=== PATIENT | male | born 1945 | race Caucasian/White ===

== ENCOUNTER 2018-03-24 08:30 | Outpatient (RCR) | payer MEDICARE, OTHER, SELFPAY | END 2018-03-28 11:36 | LOC: CAR 08:30 | PROVIDERS: PCP Physician Assistant; Visit Provider Internal Medicine Cardiovascular Disease | DX: Z95.2 Presence of prosthetic heart valve (principal) | CPT/HCPCS: 93798 ==

== ENCOUNTER → 2019-03-22 10:12 | Outpatient (CLI) | payer MEDICARE, OTHER, SELFPAY ==
[2019-03-22 11:27] LABS: Prostate Specific Antigen 1.86 ng/mL (0.10-4.00)
== END ==
PROVIDERS: Family Provider Physician Assistant; PCP Physician Assistant; Visit Provider Urology
DX: N40.1 Benign prostatic hyperplasia with lower urinary tract symptoms (principal)
CPT/HCPCS: 36415; 84153

== ENCOUNTER → 2020-01-23 15:47 | Outpatient (CLI) | payer OTHER, SELFPAY ==
--- NOTE | 2020-01-23 | DI.ECHO.S_ITS ---
[facility] +---------+ : : [address] : : : : [id number] : : : : Phone: [phone] Echocardiogram Report + + :Name: ESTHELA JACKSON Study Date: 01/23/2020 Height: 73 in : :[facility] Weight: 182 lb : : Gender: Male BSA: 2.1 m2 : :: 1945 Age: 74 yrs BP: 120/74 mmHg: :Reason For Study: Ventricular premature depolarization : :Ordering Physician: Noelle : :Jose Luis Mcintyre Performed By: Jeanne Zamudio : :Referring: NOELLE MCINTYRE : + + Interpretation Summary The left ventricle is normal in size. This is Decreased compared to the previous study. The ejection fraction is estimated to be 60-65%. There has been no significant change in LVEF since the previous exam. The right ventricle is mildly dilated. The right ventricular systolic function is normal. The mitral valve has been surgically repaired and an annuloplasty ring sewn in place. No significant mitral valve stenosis. There is no mitral regurgitation noted. Procedure: A two-dimensional transthoracic echocardiogram with color flow and Doppler was performed. The study quality was technically adequate. Comparison is made with the echocardiogram of 01/11/2017. The patient was in normal sinus rhythm during the exam. The heart rate ranged between 65-72 bpm during the study. Left Ventricle: The left ventricle is normal in size. Left ventricular wall thickness is borderline increased. This is Decreased compared to the previous study. There is no thrombus. The ejection fraction is estimated to be 60-65%. There has been no significant change since the previous exam. There are no focal wall motion abnormalities. MV E/A: 0.77 Med Peak E' Khoi: 6.2 cm/sec E/E' med: 16.2. Right Ventricle: The right ventricle is mildly dilated. The right ventricular systolic function is normal. Atria: The left atrium is severely dilated. The left atrium has remained unchanged in size since the prior echo exam. The right atrium is mildly dilated. There is no Doppler evidence for an interatrial shunt. Mitral Valve: The mitral valve chordae are thickened and/or calcified. The mitral valve has been surgically repaired and an annuloplasty ring sewn in place. Redundant elongated chordae are noted. No significant mitral valve stenosis. There is no mitral regurgitation noted. Aortic Valve: The aortic valve is trileaflet. The aortic valve opens well. There is no aortic valve stenosis. No aortic regurgitation is present. Tricuspid Valve: The tricuspid valve is normal in structure and function. There is mild tricuspid regurgitation. The right ventricular systolic pressure is estimated to be at least 29 mmHg based on an estimated right atrial pressure of 3 mm Hg. Compared to the prior echo exam, there has been no change in TR severity. Pulmonic Valve: The pulmonic valve is not well visualized. There is trace pulmonic regurgitation. Great Vessels: The aortic root is normal size. The ascending aorta is at the upper limits of normal in size. The IVC is of normal diameter and collapses greater than 50% with a sniff. This suggests a low right atrial pressure of 3 mm Hg. Pericardium/ Pleura There is no pericardial effusion. There is no pleural effusion. MMode/2D Measurements & Calculations LVIDd: 5.6 cm LVOT diam: 2.4 cm LVIDs: 3.9 cm Ao root diam: 3.3 cm FS: 29.7 % asc Aorta Diam: 3.4 cm EPSS: 1.2 cm IVSd: 1.0 cm LVPWd: 1.1 cm LV lowry. diameter/BSA (cm/m^2): 2.7 LV sys. diameter/BSA (cm/m^2): 1.9 LA A2 area: 30.3 cm2 RA long axis: 6.4 cm LA A4 area: 28.8 cm2 RA area: 24.7 cm2 LA length (vol): 6.5 cm RA vol: 81.3 ml LA vol: 113.4 ml RA : 39.3 ml/m2 LA vol index: 54.9 ml/m2 IVC diam: 1.5 cm RVD1 (basal): 4.4 cm TAPSE: 1.7 cm Doppler Measurements & Calculations Ao V2 max: 134.4 cm/sec LVOT Max Khoi: 102.5 cm/sec Ao V2 mean: 89.1 cm/sec LV V1 max P.2 mmHg Ao max P.2 mmHg LV V1 VTI: 21.3 cm Ao mean P.7 mmHg CHRIS(I,D): 3.8 cm2 Ao V2 VTI: 25.6 cm CHRIS(V,D): 3.5 cm2 sev ratio: 0.83 CHRIS indexed to BSA (cm^2/m^2): 1.8 MV E max khoi: 100.6 cm/sec TR max khoi: 237.6 cm/sec MV A max khoi: 130.8 cm/sec TR max P.6 mmHg MV E/A: 0.77 PA V2 max: 80.7 cm/sec Med Peak E' Khoi: 6.2 cm/sec PA V2 mean: 53.6 cm/sec E/E' med: 16.2 PA mean P.3 mmHg Lat Peak E' Khoi: 8.3 cm/sec E/E' lat: 12.1 E/e' average: 14.2 MV dec time: 0.40 sec MVA(VTI): 2.0 cm2 MV V2 mean: 89.3 cm/sec SV(LVOT): 97.6 ml MV mean P.7 mmHg MV V2 VTI: 49.1 cm Reading Physician:06:39 PM
== END ==
PROVIDERS: Family Provider Physician Assistant; PCP Nurse Practitioner; Referring Provider Internal Medicine Cardiovascular Disease; Visit Provider Internal Medicine Cardiovascular Disease
DX: I07.1 Rheumatic tricuspid insufficiency (principal); I49.3 Ventricular premature depolarization; Z98.890 Other specified postprocedural states
CPT/HCPCS: 93306

== ENCOUNTER → 2020-02-06 11:34 | Outpatient (CLI) | payer OTHER, SELFPAY ==
[2020-02-06 12:49] LABS: Alanine Aminotransferase 25 IU/L (<50); Albumin Globulin Ratio 1.4 (1.0-2.8); Alkaline Phosphatase 54 U/L (38-126); Aspartate Aminotransferase 30 IU/L (17-59); BUN Creatinine Ratio 23.5 (6-22); Blood Urea Nitrogen 16 mg/dL (9-20); Calcium 9.3 mg/dL (8.4-10.2); Carbon Dioxide 27 mmol/L (22-32); Chloride 106 mmol/L (98-107); Estimated Glomerular Filt Rate > 60.0 mL/min (>60); Globulin 2.8 g/dL (1.7-4.1); Glucose 68 mg/dL (80-110); HEMOLYSIS < 15 (0-50); Magnesium 2.2 mg/dL (1.6-2.3); Sodium 139 mmol/L (137-145); Total Protein 6.8 g/dL (6.3-8.2)
[2020-02-06 13:11] LABS: Thyroid Stimulating Hormone 1.57 uIU/mL (0.47-4.68)
== END ==
PROVIDERS: Family Provider Physician Assistant; PCP Nurse Practitioner; Referring Provider Internal Medicine Cardiovascular Disease; Visit Provider Internal Medicine Cardiovascular Disease
DX: I49.3 Ventricular premature depolarization (principal); I34.0 Nonrheumatic mitral (valve) insufficiency
CPT/HCPCS: 36415; 80053; 83735; 84443

== ENCOUNTER → 2021-03-31 09:50 | Outpatient (CLI) | payer OTHER, SELFPAY ==
--- NOTE | 2021-03-31 10:29 | DI.RAD.S_ITS ---
PROCEDURE: XR CHEST 2V INDICATIONS: cough TECHNIQUE: 2 views of the chest were acquired. COMPARISON: None. FINDINGS: Surgical changes and devices: Median sternotomy wires and prior valvular replacement. Lungs and pleura: Lungs are clear, aside from mild left basilar scarring versus subsegmental atelectasis. No pleural effusions or pneumothorax. Mediastinum: Mediastinal contours are normal. Heart size is normal. Bones and chest wall: No suspicious bony abnormalities. Soft tissues appear unremarkable. IMPRESSION: Left basilar scarring versus subsegmental atelectasis. Dictated by: Travis Manzanares [facility] Interpreted: Ernst Ferrera MD on 03/31/2021 at 10:39 Transcribed by: VIVIAN on 03/31/2021 at 10:40 Approved by: Ernst Ferrera M.D. on 03/31/2021 at 15:42
[2021-03-31 11:22] LABS: Add Manual Diff / Slide Review NO; Basophils Absolute Auto 100 /uL (0-100); Basophils Percent Auto 0.8 % (0-2); Eosinophils Absolute Auto 200 /uL (0-450); Eosinophils Percent Auto 3.1 % (2-4); Hematocrit 45.1 % (41-53); Hemoglobin 15.4 g/dL (13.5-17.5); Lymphocytes Absolute Auto 2100 /uL (1100-4500); Lymphocytes Percent Auto 34.4 % (25-40); Mean Corpuscular HGB Conc 34.3 % (30-36); Mean Corpuscular Hemoglobin 31.2 PG (26-34); Mean Corpuscular Volume 91.1 fL (80-100); Monocytes Absolute Auto 300 /uL (0-900); Neutrophils Absolute Auto 3500 /uL (1500-7000); Neutrophils Percent Auto 56.7 % (50-75); Platelet Count 172 X10^3/uL (150-400); Red Blood Cell Count 4.95 X10^6/uL (4.5-5.9); Red Cell Distribution Width 13.2 % (11.6-14.8); White Blood Cell Count 6.1 X10^3/uL (4.5-11.0)
[2021-03-31 11:40] LABS: Alanine Aminotransferase 30 IU/L (<50); Albumin 4.1 g/dL (3.5-5.0); Albumin Globulin Ratio 1.6 (1.0-2.8); Alkaline Phosphatase 54 U/L (38-126); Aspartate Aminotransferase 34 IU/L (17-59); BUN Creatinine Ratio 19.2 (6-22); Bilirubin Total 0.8 mg/dL (0.2-1.3); Blood Urea Nitrogen 15 mg/dL (9-20); C-Reactive Protein Quant < 0.5 mg/dL (<1.0); Calcium 9.2 mg/dL (8.4-10.2); Carbon Dioxide 29 mmol/L (22-32); Chloride 106 mmol/L (98-107); Estimated Glomerular Filt Rate > 60.0 mL/min (>60); Globulin 2.6 g/dL (1.7-4.1); Glucose 93 mg/dL (80-110); HEMOLYSIS < 15 (0-50); Potassium 4.4 mmol/L (3.4-5.1); Sodium 138 mmol/L (137-145); Total Protein 6.7 g/dL (6.3-8.2)
[2021-03-31 11:51] LABS: Free T3, Triiodothyronine Free 3.46 pg/mL (2.77-5.27); Free T4, Direct Thyroxine 0.97 ng/dL (0.78-2.19)
[2021-03-31 12:05] LABS: Erythrocyte Sedimentation Rate 4 MM/HR (0-15)
[2021-04-01 20:58] LABS: ANA Screen, IFA Negative (.)
== END ==
PROVIDERS: Family Provider Physician Assistant; PCP Nurse Practitioner; Referring Provider Nurse Practitioner; Visit Provider Nurse Practitioner
DX: E78.2 Mixed hyperlipidemia (principal); R05 Cough; R50.9 Fever, unspecified; R53.83 Other fatigue
CPT/HCPCS: 36415; 71046; 80053; 84439; 84443; 84481; 85025; 85651; 86038; 86140

== ENCOUNTER 2022-07-22 18:47 | Emergency (ER) | payer OTHER, SELFPAY ==
--- NOTE | 2022-07-22 18:36 | DI.CT.S_ITS ---
PROCEDURE: CT HEAD/BRAIN WO CON INDICATIONS: Trauma TECHNIQUE: Noncontrast 4.5 mm thick angled axial sections acquired from the foramen magnum to the vertex, with coronal and sagittal reformats. For radiation dose reduction, the following was used: automated exposure control, adjustment of mA and/or kV according to patient size. COMPARISON: None. FINDINGS: Image quality: Excellent. CSF spaces: Basal cisterns are patent. No extra-axial fluid collections. Ventricles are normal in size and shape. Brain: No midline shift. No intracranial masses or hemorrhage. Pna-white matter interface is normal. Skull and face: Calvarium and visualized facial bones are intact, without suspicious lesions. Bilateral intraocular lens replacements noted. Comminuted nasal bone fracture Sinuses: Visualized sinuses and mastoids are clear. IMPRESSION: Unremarkable CT brain without intracranial hemorrhage or mass effect paragraphs comminuted nasal bone fracture Continued Report - Page 2 of 2 PATIENT NAME: ESTHELA JACKSON : 1945 EXAM DATE: 07/22/2022 18:[address] HARSHIL LEMUS D.O. CC: MODALITY: CT PATIENT TYPE: Pre CONTRAST MEDIA: STATION ID: [id number] FLUORO TIME: Approved by: Morris Cervantes M.D. on 07/22/2022 at 18:12
--- NOTE | 2022-07-22 18:36 | DI.CT.S_ITS ---
PROCEDURE: CT FACIAL BONES WO CON INDICATIONS: trauma, facial injury, altered TECHNIQUE: Noncontrast 2.5 mm thick axial images acquired from the mandible through the frontal sinuses, with coronal and sagittal reformatting. For radiation dose reduction, the following was used: automated exposure control, adjustment of mA and/or kV according to patient size. COMPARISON: None. FINDINGS: Maxillofacial Bones: The zygomaticomaxillary complex is intact. The pterygoid plates and skull base are unremarkable. No evidence of fracture or lytic lesion. Comminuted nasal bone fracture noted Mandible: The mandible is intact without fracture. Unremarkable temporomandibular articulation. Dentition: Unremarkable mandibular and maxillary dentition. Soft tissues: No maxillofacial soft tissue swelling. No radiopaque foreign bodies. Orbits: The osseous orbits, globes and ocular muscles unremarkable. Bilateral intraocular lens replacements noted. Sinuses and Mastoid: The visualized portion of the paranasal sinuses and mastoids are normal. No air-fluid levels or wall fractures. The nasal vault is unremarkable. IMPRESSION: Comminuted nasal bone fracture Approved by: Morris Cervantes M.D. on 07/22/2022 at 18:13
--- NOTE | 2022-07-22 18:36 | DI.CT.S_ITS ---
PROCEDURE: CT CERVICAL SPINE WO CON INDICATIONS: Trauma TECHNIQUE: Noncontrast 3 mm thick sections acquired from the skull base to the T4 level. Sagittal and coronal reformats were then constructed. For radiation dose reduction, the following was used: automated exposure control, adjustment of mA and/or kV according to patient size. COMPARISON: None. FINDINGS: Image quality: Excellent. Bones: No fractures or dislocations. Visualized superior ribs are intact. Hypertrophic facet joints noted throughout the exam. Posterior disc osteophyte complex results in moderate to severe central stenosis at C5-6 Soft tissues: Prevertebral soft tissues are normal in thickness. No paravertebral hematomas. No apical pneumothoraces. IMPRESSION: No evidence of fracture or traumatic malalignment. Multilevel degenerative disc disease and arthropathy results in moderate to severe central stenosis at C5-6 Approved by: Morris Cervantes M.D. on 07/22/2022 at 18:17
[2022-07-22 18:41] VITALS: BP 128/70; PULSE 75; RESP 23; O2SAT 94
[2022-07-22 18:42] VITALS: BP 127/80; PULSE 70; RESP 18; TEMP 36.2; O2SAT 99
--- NOTE | 2022-07-22 18:47 | ED.TRAUMA ---
HPI - Trauma General Chief Complaint: Trauma Stated Complaint: Mod Trauma, fall on thinners Time Seen by Provider: 07/22/22 18:47 History of Present Illness HPI narrative: 76-year-old male former smoker with history AFib on Pradaxa, BPH presents by [employer] as a modified trauma due to a fall with head injury, loss of consciousness while on blood thinners. The patient had been in his normal state of health and stood up quickly from a table while playing games and had a syncopal episode which caused him to fall and strike his head. Onlookers report a loss of consciousness maybe for a few minutes and some confusion in the aftermath. There is no report of seizure. He does not have recall of the event but denies any neck or back pain. He has no chest pain or shortness of breath and denies any extremity injury. On arrival patient was found on the ground and EMS reports a brief blood pressure a 70 but upon repositioning he was in the 130s and remained there stable. Given fall with head injury on anticoagulation he was activated as a modified trauma quickly assessed and taken to CT for imaging Related Data Home Medications Medication Instructions Recorded Confirmed dabigatran etexilate 150 mg 150 mg PO BID 07/22/22 07/22/22 capsule (Pradaxa) Previous Rx's Medication Instructions Recorded metoprolol succinate 25 mg 12.5 mg PO QDAY #90 tabs 03/15/20 tablet,extended release 24 hr (Toprol XL) tamsulosin 0.4 mg capsule (Flomax) 0.8 mg PO QDAY #180 caps 09/08/21 cephalexin 500 mg capsule 500 mg PO Q6H 7 days #28 caps 07/22/22 hydrocodone 5 mg-acetaminophen 325 1 tab PO Q4-6H PRN pain #20 tabs 07/22/22 mg tablet ondansetron 4 mg disintegrating 4 mg PO TID-QID PRN nausea and 07/22/22 tablet vomiting #10 tabs Allergies Allergy/AdvReac Type Severity Reaction Status Date / Time No Known Drug Allergies Allergy Verified 07/22/22 19:03 Review of Systems Review of Systems Narrative: GENERAL: See HPI HEENT: See HPI RESPIRATORY: Denies dyspnea, cough, wheezing, hemoptysis, sputum. CARDIOVASCULAR: Denies chest pain, palpitations, orthopnea, edema, GASTROINTESTINAL: Denies nausea, vomiting, abdominal pain, diarrhea, constipation, melena. : Denies dysuria, frequency, incontinence, hematuria, urinary retention. MUSCULOSKELETAL: denies weakness, joint pain, or bony pain SKIN: See HPI NEUROLOGIC: Denies weakness, headache, numbness, change in speech, confusion, seizures, incoordination. PSYCHIATRIC: No concerning psychosocial issues. 12 point review of systems is negative except for those stated above Patient History Medical History Atrial flutter BPH (benign prostatic hyperplasia) Colon cancer screening FH: mitral valve repair Palpitations Paroxysmal atrial fibrillation Urinary frequency Surgical History Status post knee surgery Family History Mother Age: 93 Hypertension Social History Smoking Status: Former smoker Smoking Status: Former smoker Exam Narrative Exam Narrative: GENERAL: [76] year old patient appears stated age. Well-developed patient, in mild distress. GCS 15 HEAD: 4cm irregular deep laceration over left eye, no FB noted, minimal bleeding. No other laceration, abrasion evidence of depressed skull fracture EYES: Pupils equal round and reactive. Extraocular motions intact. No hyphema noted No scleral icterus. No injection or drainage. Patient has intact visual acuity, denies any blurring or double vision. Visualized under Wood's lamp, no foreign body or dye uptake with fluorescein ENT: Swollen deformed nose consistent with fracture. Dried blood in bilateral nares, he is able to breathe through both nostrils, no evidence of nasal septal hematoma. Throat without erythema, tonsillar hypertrophy or exudate. Airway patent. No hemotympanum NECK: Trachea midline. Non tender, no midline bony tenderness, crepitance or pain with axial loading CARDIOVASCULAR: Regular rate and rhythm without murmurs, gallops, or rubs. RESPIRATORY: Clear to auscultation. Breath sounds equal bilaterally. No wheezes, rales, or rhonchi. GASTROINTESTINAL: Abdomen soft, non-tender, nondistended. EXTREMITIES: No edema or joint tenderness. BACK: Nontender without deformity or crepitance. No flank tenderness. NEURO: AOx3. SKIN: No rash or erythema of visible areas Initial Vital Signs Initial Vital Signs: Vital Signs Pulse Rate 75 07/22/22 18:41 Respiratory Rate 23 07/22/22 18:41 Blood Pressure 128/70 07/22/22 18:41 Pulse Oximetry 94 07/22/22 18:41 Oxygen Delivery Method 07/22/22 18:41 Procedures Laceration Repair Laceration 1: Site: face Side (If applicable): left Size (cm): 4 Description: stellate Depth: involves muscle layer Local Anesthetic: bupivacaine 0.5% and with epi Amount of anesthesia used (mL): 4 Pre-repair: wound explored, irrigated extensively and cleansed with chlorhexadine Skin layer closed with: nylon Skin layer suture size: 4-0 and 6-0 Number of sutures: 11 Technique: simple, interrupted Subcutaneous layer closed with: vicryl Subcutaneous layer suture size: 4-0 Number of sutures: 4 Technique: simple, interrupted Course Orders Ordered: ED Orders 07/22/22 18:32 CT facial bones wo con Stat 07/22/22 18:33 CT cervical spine wo con Stat CT head/brain wo con Stat 07/22/22 18:35 Complete Blood Count AUTO DIFF Stat Comprehensive Metabolic Panel Stat Ethanol (ETOH) Stat Lactate (Lactic Acid) Stat Lipase Stat Partial Thromboplastin Time Stat Prothrombin Time INR Stat 07/22/22 19:00 EKG-12 Lead Stat 07/22/22 19:10 Type and Screen Stat 07/22/22 19:59 Chest [XR chest 1V] Stat XR pelvis 1-2V Stat Discontinued Medications Hydrocodone Bitart/Acetaminophen (Hydrocodone/Acet 5/325 Prepack) 1 bottle MISC SEEINSTR ONE Stop: 07/22/22 22:28 Last Admin: 07/22/22 22:31 Dose: 1 bottle Documented By: TK Cefazolin Sodium (Cephalexin 250 Mg Prepack) 1 bottle MISC SEEINSTR ONE Stop: 07/22/22 20:00 Last Admin: 07/22/22 20:53 Dose: 1 bottle Documented By: TK Diphtheria/Tetanus/Acell Pertussis (Tet,Diph,Pertuss(Acell),Vac/Pf 0.5 Ml Syringe) 0.5 ml IM .ONCE ONE Stop: 07/22/22 18:33 Last Admin: 07/22/22 19:01 Dose: 0.5 ml Documented By: ADK Fluorescein Sodium (Fluorescein 1 Mg Strip) 1 mg EYE-LEFT NOW ONE Stop: 07/22/22 18:44 Lidocaine/Epinephrine (Lidocaine 1% W/Epi) 1 ml SUBCUT NOW ONE Stop: 07/22/22 18:44 Ondansetron HCl (Ondansetron 4 Mg Odt Prepack) 1 bottle MISC SEEINSTR ONE Stop: 07/22/22 20:00 Last Admin: 07/22/22 20:54 Dose: 1 bottle Documented By: AP Ondansetron HCl (Ondansetron 4 Mg Odt Prepack) 1 bottle MISC SEEINSTR ONE Stop: 07/22/22 22:28 Proparacaine HCl (Proparacaine 0.5% Ophth Laura) 1 drops EYE-LEFT NOW ONE Stop: 07/22/22 18:44 Vital Signs Vital signs: Vital Signs - 8 hr 07/22/22 18:42 07/22/22 18:41 07/22/22 22:43 Temperature 97.1 F L Pulse Rate 70 75 82 Respiratory Rate 18 18 Blood Pressure 127/80 113/74 Blood Pressure [Right Arm] 128/70 Pulse Oximetry 99 94 100 Oxygen Delivery Method Room Air Room Air Room Air MDM - Trauma Lab Data Result diagrams: 07/22/22 18:35 07/22/22 18:35 Labs: Lab Results 07/22/22 07/22/22 07/22/22 Range/Units 18:35 18:35 18:35 WBC 11.3 H (4.5-11.0) X10^3/uL RBC 4.97 (4.5-5.9) X10^6/uL Hgb 15.3 (13.5-17.5) g/dL Hct 44.5 (41-53) % MCV 89.5 (80-100) fL MCH 30.8 (26-34) PG MCHC 34.4 (30-36) % RDW 13.3 (11.6-14.8) % Plt Count 223 (150-400) X10^3/uL Neut % (Auto) 56.8 (50-75) % Lymph % (Auto) 35.2 (25-40) % Spalding % (Auto) 5.4 (3-14) % Eos % (Auto) 2.0 (2-4) % Baso % (Auto) 0.6 (0-2) % Neut # (Auto) 6400 (0655-0976) /uL Lymph # (Auto) 4000 (4599-9508) /uL Spalding # (Auto) 600 (0-900) /uL Eos # (Auto) 200 (0-450) /uL Baso # (Auto) 100 (0-100) /uL PT 12.3 (10.1-12.7) SECONDS INR 1.1 (0.9-1.3) APTT 26 (26-36) SECONDS Sodium 139 (137-145) mmol/L Potassium 3.8 (3.4-5.1) mmol/L Chloride 102 (98-107) mmol/L Carbon Dioxide 27 (22-32) mmol/L BUN 16 (9-20) mg/dL Creatinine 0.83 (0.66-1.25) mg/dL Estimated GFR > 60 (>60) mL/min BUN/Creatinine Ratio 19.3 (6-22) Glucose 115 H (80-110) mg/dL Lactate (0.7-2.1) mmol/L Calcium 9.4 (8.4-10.2) mg/dL Total Bilirubin 1.2 (0.2-1.3) mg/dL AST 27 (17-59) IU/L ALT 27 (<50) IU/L Alkaline Phosphatase 53 (38-126) U/L Total Protein 7.1 (6.3-8.2) g/dL Albumin 4.2 (3.5-5.0) g/dL Globulin 2.9 (1.7-4.1) g/dL Albumin/Globulin Ratio 1.4 (1.0-2.8) Lipase 42 (23-300) U/L Ethyl Alcohol < 10 ( - 10) mg/dL Blood Type Antibody Screen 07/22/22 07/22/22 Range/Units 18:35 19:10 WBC (4.5-11.0) X10^3/uL RBC (4.5-5.9) X10^6/uL Hgb (13.5-17.5) g/dL Hct (41-53) % MCV (80-100) fL MCH (26-34) PG MCHC (30-36) % RDW (11.6-14.8) % Plt Count (150-400) X10^3/uL Neut % (Auto) (50-75) % Lymph % (Auto) (25-40) % Spalding % (Auto) (3-14) % Eos % (Auto) (2-4) % Baso % (Auto) (0-2) % Neut # (Auto) (0556-2857) /uL Lymph # (Auto) (6288-8257) /uL Spalding # (Auto) (0-900) /uL Eos # (Auto) (0-450) /uL Baso # (Auto) (0-100) /uL PT (10.1-12.7) SECONDS INR (0.9-1.3) APTT (26-36) SECONDS Sodium (137-145) mmol/L Potassium (3.4-5.1) mmol/L Chloride (98-107) mmol/L Carbon Dioxide (22-32) mmol/L BUN (9-20) mg/dL Creatinine (0.66-1.25) mg/dL Estimated GFR (>60) mL/min BUN/Creatinine Ratio (6-22) Glucose (80-110) mg/dL Lactate 1.5 (0.7-2.1) mmol/L Calcium (8.4-10.2) mg/dL Total Bilirubin (0.2-1.3) mg/dL AST (17-59) IU/L ALT (<50) IU/L Alkaline Phosphatase (38-126) U/L Total Protein (6.3-8.2) g/dL Albumin (3.5-5.0) g/dL Globulin (1.7-4.1) g/dL Albumin/Globulin Ratio (1.0-2.8) Lipase (23-300) U/L Ethyl Alcohol ( - 10) mg/dL Blood Type O Positive Antibody Screen Negative Point of Care Testing Glucose POC [address] scan - head: Radiologist's Impression: Unremarkable CT brain without intracranial hemorrhage or mass effect Chest x-ray: Radiologist's Impression: [address] [address] XRay Report Signed Patient: Marco A Aggarwal MR#: [id number] : 1945 Acct:[id number] Age/Sex: 76 / M Date of Service: 07/22/22 Loc: ED Accession Number: [id number] ?? Procedure: XR chest 1V Ordering Provider: Vitaly Garcia D.O. PROCEDURE:? XR CHEST 1V ? INDICATIONS:? trauma ? TECHNIQUE:? One view of the chest was acquired.? ? COMPARISON:? [facility], XR CHEST 2V, 03/31/2021, 10:27. ? FINDINGS:? ? Surgical changes and devices:? Postsurgical changes are redemonstrated in the mediastinum. ? Lungs and pleura:? No acute consolidation.? There are linear opacities in the left lung base likely representing atelectasis.? No pleural effusions or pneumothorax.? ? Mediastinum:? Mediastinal contours appear normal.? Heart size is normal.? ? Bones and chest wall:? No displaced fractures identified.? No suspicious bony lesions.? Overlying soft tissues appear unremarkable.? ? IMPRESSION:? ? 1. No definite acute traumatic abnormality.? ? ? Dictated by: Marcelino Dawn M.D. on 07/22/2022 at 21:20 ? ? Approved by: Marcelino Dawn M.D. on 07/22/2022 at 21:21 ? Pelvic Xray: Radiologist's Impression: [place] [address] XRay Report Signed Patient: Marco A Aggarwal MR#: [id number] : 1945 Acct:[id number] Age/Sex: 76 / M Date of Service: 07/22/22 Loc: ED Accession Number: [id number] ?? Procedure: XR chest 1V Ordering Provider: Vitaly Garcia D.O. PROCEDURE:? XR CHEST 1V ? INDICATIONS:? trauma ? TECHNIQUE:? One view of the chest was acquired.? ? COMPARISON:? [facility], XR CHEST 2V, 03/31/2021, 10:27. ? FINDINGS:? ? Surgical changes and devices:? Postsurgical changes are redemonstrated in the mediastinum. ? Lungs and pleura:? No acute consolidation.? There are linear opacities in the left lung base likely representing atelectasis.? No pleural effusions or pneumothorax.? ? Mediastinum:? Mediastinal contours appear normal.? Heart size is normal.? ? Bones and chest wall:? No displaced fractures identified.? No suspicious bony lesions.? Overlying soft tissues appear unremarkable.? ? IMPRESSION:? ? 1. No definite acute traumatic abnormality.? ? ? Dictated by: Marcelino Dawn M.D. on 07/22/2022 at 21:20 ? ? Approved by: Marcelino Dawn M.D. on 07/22/2022 at 21:21 ? CT Facial Bones: Radiologist's Impression: Comminuted nasal bone fracture Discharge Plan Departure Patient Disposition: Home Clinical Impression: Complex laceration of face, Head injury, Syncope, Concussion, Closed fracture nasal bone Instructions: DI for Trauma Activity Restrictions/Additional Instructions: *You have been diagnosed with [fall with head injury, concussion, nose fracture and complex facial laceration] *What to do: *Please continue to take your regular medications as directed. [ x] New medication prescriptions sent to your pharmacy: [[facility] ] [ ] New medication written as a paper prescription [ ] No new medications given *Please follow up with your primary care provider in about 7 days, call for an appointment. Let them know you were seen in the Emergency Department and that we ask that you be seen in follow up. We will electronically transmit a record of today's note if your PCP is in our system * also, as we discussed I have included contact information for [facility]. Please call them in the next few days and let them know that you were seen in the emergency department and we would like you seen in follow-up. I will electronically transmitted a copy of today's note to their office on your behalf *If you do not have a primary care provider please contact the [facility] Resource line at [phone]. They will ask some questions about your medical history and help get you set up with a doctor in the community. *Return to Emergency Department if you should have any new, worsening or concerning symptoms, such as [fever greater than 101 F, shaking chills, worsening pain, persistent vomiting or other bothersome symptoms] Prescriptions: New cephalexin 500 mg capsule 500 mg PO Q6H 7 Days Qty: 28 0RF ondansetron 4 mg tablet,disintegrating 4 mg PO TID-QID PRN (Reason: nausea and vomiting) Qty: 10 0RF hydrocodone-acetaminophen 5-325 mg tablet 1 tab PO Q4-6H PRN (Reason: pain) Qty: 20 0RF No Action tamsulosin [Flomax] 0.4 mg capsule 0.8 mg PO QDAY Qty: 180 3RF Rx Instructions: Take 2 tablets by mouth daily for BPH symptoms metoprolol succinate [Toprol XL] 25 mg tablet extended release 24 hr 12.5 mg PO QDAY Qty: 90 3RF Rx Instructions: Take 1 tab by mouth daily for hypertension. dabigatran etexilate [Pradaxa] 150 mg capsule 150 mg PO BID Referrals: Annemarie Mccarty ARNP [Primary Care Provider] - Visit Report Forms: Patient Portal/API
[2022-07-22 18:53] LABS: Add Manual Diff / Slide Review NO; Basophils Absolute Auto 100 /uL (0-100); Basophils Percent Auto 0.6 % (0-2); Eosinophils Absolute Auto 200 /uL (0-450); Hematocrit 44.5 % (41-53); Hemoglobin 15.3 g/dL (13.5-17.5); Lymphocytes Absolute Auto 4000 /uL (1100-4500); Lymphocytes Percent Auto 35.2 % (25-40); Mean Corpuscular HGB Conc 34.4 % (30-36); Mean Corpuscular Hemoglobin 30.8 PG (26-34); Mean Corpuscular Volume 89.5 fL (80-100); Monocytes Absolute Auto 600 /uL (0-900); Monocytes Percent Auto 5.4 % (3-14); Neutrophils Absolute Auto 6400 /uL (1500-7000); Neutrophils Percent Auto 56.8 % (50-75); Platelet Count 223 X10^3/uL (150-400); Red Blood Cell Count 4.97 X10^6/uL (4.5-5.9); Red Cell Distribution Width 13.3 % (11.6-14.8); White Blood Cell Count 11.3 X10^3/uL (4.5-11.0)
[2022-07-22 19:00] LABS: INR 1.1 (0.9-1.3); Prothrombin Time 12.3 SECONDS (10.1-12.7)
[2022-07-22] MEDS: TET,DIPH,PERTUSS(ACELL),VAC/PF 0.5 ML SYRINGE IM (19:01)
[2022-07-22 19:03] LABS: PTT Partial Thromboplastin Tim 26 SECONDS (26-36)
[2022-07-22 19:06] LABS: Lactate (Lactic Acid) 1.5 mmol/L (0.7-2.1)
[2022-07-22 19:08] LABS: Alanine Aminotransferase 27 IU/L (<50); Albumin 4.2 g/dL (3.5-5.0); Albumin Globulin Ratio 1.4 (1.0-2.8); Alkaline Phosphatase 53 U/L (38-126); Aspartate Aminotransferase 27 IU/L (17-59); BUN Creatinine Ratio 19.3 (6-22); Bilirubin Total 1.2 mg/dL (0.2-1.3); Blood Urea Nitrogen 16 mg/dL (9-20); Calcium 9.4 mg/dL (8.4-10.2); Carbon Dioxide 27 mmol/L (22-32); Chloride 102 mmol/L (98-107); Estimated Glomerular Filt Rate > 60 mL/min (>60); Ethanol (ETOH) < 10 mg/dL; Globulin 2.9 g/dL (1.7-4.1); Glucose 115 mg/dL (80-110); HEMOLYSIS < 15 (0-50); Lipase 42 U/L (23-300); Potassium 3.8 mmol/L (3.4-5.1); Sodium 139 mmol/L (137-145); Total Protein 7.1 g/dL (6.3-8.2)
--- NOTE | 2022-07-22 19:59 | DI.RAD.S_ITS ---
PROCEDURE: XR PELVIS 1-2V INDICATIONS: trauma TECHNIQUE: 2 AP views of the pelvis acquired. COMPARISON: None. FINDINGS: Bones: No definite fractures or dislocations. No suspicious bony lesions. Soft tissues: Visualized bowel gas pattern is normal. No suspicious soft tissue calcifications. IMPRESSION: 1. No definite fracture or dislocation. Dictated by: Marcelino Dawn M.D. on 07/22/2022 at 21:12 Approved by: Marcelino Dawn M.D. on 07/22/2022 at 21:13
--- NOTE | 2022-07-22 19:59 | DI.RAD.S_ITS ---
PROCEDURE: XR CHEST 1V INDICATIONS: trauma TECHNIQUE: One view of the chest was acquired. COMPARISON: [facility], CR, XR CHEST 2V, 03/31/2021, 10:27. FINDINGS: Surgical changes and devices: Postsurgical changes are redemonstrated in the mediastinum. Lungs and pleura: No acute consolidation. There are linear opacities in the left lung base likely representing atelectasis. No pleural effusions or pneumothorax. Mediastinum: Mediastinal contours appear normal. Heart size is normal. Bones and chest wall: No displaced fractures identified. No suspicious bony lesions. Overlying soft tissues appear unremarkable. IMPRESSION: 1. No definite acute traumatic abnormality. Dictated by: Marcelino Dawn M.D. on 07/22/2022 at 21:20 Approved by: Marcelino Dawn M.D. on 07/22/2022 at 21:21
[2022-07-22] MEDS: cephALEXin 250 MG PREPACK 1 BOTTLE MISC (20:53)
[2022-07-22] MEDS: ONDANSETRON 4 MG ODT PREPACK 1 BOTTLE MISC (20:54)
[2022-07-22] MEDS: HYDROCODONE/ACET 5/325 PREPACK 1 BOTTLE MISC (22:31)
[2022-07-22 22:43] VITALS: BP 113/74; PULSE 82; RESP 18; O2SAT 100
[2022-10-07 19:45] LABS: Fecal Immunochemical Test Negative (Negative)
== END 2022-07-22 22:42 | disposition home or self-care (01) ==
PROVIDERS: Emergency Provider Emergency Medicine; Family Provider Physician Assistant; PCP Nurse Practitioner; Referring Provider Emergency Medicine
DX: S06.0X1A Concussion with loss of consciousness of 30 minutes or less, initial encounter (principal); S01.81XA Laceration without foreign body of other part of head, initial encounter; S02.2XXA Fracture of nasal bones, initial encounter for closed fracture; R55 Syncope and collapse; I48.91 Unspecified atrial fibrillation; Z79.01 Long term (current) use of anticoagulants; Z23 Encounter for immunization
CPT/HCPCS: 13132; 36415; 70450; 70486; 71045; 72125; 72170; 80053; 80320; 82274; 82962; 83605; 83690; 85025; 85610; 85730; 86850; 86900; 86901; 90471; 93005; 99285; 90715

== ENCOUNTER → 2022-10-12 13:41 | Outpatient (CLI) | payer OTHER, SELFPAY ==
--- NOTE | 2022-10-12 | DI.ECHO.S_ITS ---
[facility]---------+ [facility] +---------+ : : [address] : : : : [id number] : : : : Phone: [phone]---------+ Echocardiogram Report + + :Name: ESTHELA JACKSON Study Date: 10/12/2022 Height: 73 in : :[facility] ReadingLocation: Weight: 175 lb : : Gender: Male BSA: 2.0 m2 : :: 1945 Age: 76 yrs BP: 110/74 mmHg: :Reason For Study: MITRAL VALVE REPAIR, POST PROCEDURAL STATES : :Ordering Physician: MIGUELINA, : :NOELLE Performed By: Jeanne Zamudio : :Referring: NOELLE MCINTYRE : + + Interpretation Summary The left ventricle is normal in size. Left ventricular ejection fraction is estimated to be 55 +/- 5%.In December 2019, LVEF 60 to 65%. MV E/A: 1.1 Med Peak E' Khoi: 4.2 cm/sec E/E' med: 32.8, suggests elevated filling pressure. In December 2019:MV E/A: 0.77 Med Peak E' Khoi: 6.2 cm/sec E/E' med: 16.2. The right ventricle is borderline dilated. The right ventricular systolic function is normal. The mitral valve has been surgically repaired and an annuloplasty ring sewn in place. There is mild mitral regurgitation. Previously no MR. Mean gradient across mitral valve about 3.9 mmHg. No significant mitral valve stenosis. Peviously 3.7 mmHg. There is mild tricuspid regurgitation. No significant change. The right ventricular systolic pressure is estimated to be at least 28 mmHg based on an estimated right atrial pressure of 3 mm Hg. Previously 29 mmHg. Procedure: A two-dimensional transthoracic echocardiogram with color flow and Doppler was performed. The study quality was technically adequate. Comparison is made with the echocardiogram of 01/23/2020. The patient was in sinus rhythm with heart rates between 56-71 bpm during the exam. Left Ventricle: The left ventricle is normal in size. Proximal septal thickening is noted. There is no thrombus. Left ventricular ejection fraction is estimated to be 55 +/- 5%. No obvious significant regional wall motion abnormalities. MV E/A: 1.1 Med Peak E' Khoi: 4.2 cm/sec E/E' med: 32.8. Right Ventricle: The right ventricle is borderline dilated. The right ventricular systolic function is normal. Atria: The left atrium is severely dilated. There has been no significant change since the previous study. The right atrium is mildly dilated. There has been no significant change since the previous study. There is no Doppler evidence for an interatrial shunt. Mitral Valve: The mitral valve chordae are thickened and/or calcified. An annuloplasty ring is noted in the mitral position. The mitral valve has been surgically repaired and an annuloplasty ring sewn in place. Redundant elongated chordae are noted. Mean gradient across mitral valve about 3.9 mmHg. No significant mitral valve stenosis. There is mild mitral regurgitation. Aortic Valve: The aortic valve is trileaflet. The aortic valve opens well. There is no aortic valve stenosis. There is trace aortic regurgitation. Tricuspid Valve: The tricuspid valve is normal. There is mild tricuspid regurgitation. The right ventricular systolic pressure is estimated to be at least 28 mmHg based on an estimated right atrial pressure of 3 mm Hg. Pulmonic Valve: The pulmonic valve leaflets are thin and pliable; valve motion is normal. There is mild pulmonic regurgitation. Great Vessels: The aortic root is normal size. The dimensions of the ascending aorta are normal. The IVC is of normal diameter and collapses greater than 50% with a sniff. This suggests a low right atrial pressure of 3 mm Hg. Pericardium/ Pleura There is no pericardial effusion. There is no pleural effusion. MMode/2D Measurements & Calculations LVIDd: 5.1 cm LVOT diam: 2.3 cm LVIDs: 3.9 cm Ao root diam: 3.7 cm FS: 23.9 % asc Aorta Diam: 3.8 cm IVSd: 1.2 cm Ao Arch Diam (Prox Trans): 3.3 cm LVPWd: 1.0 cm LV lowry. diameter/BSA (cm/m^2): 2.5 LV sys. diameter/BSA (cm/m^2): 1.9 LA A2 area: 35.1 cm2 RA long axis: 5.8 cm LA A4 area: 32.1 cm2 RA area: 23.6 cm2 LA length (vol): 6.8 cm RA vol: 81.6 ml LA vol: 141.0 ml RA : 40.2 ml/m2 LA vol index: 69.3 ml/m2 IVC diam: 1.9 cm RVD1 (basal): 4.1 cm RVD2 (mid): 3.7 cm TAPSE: 1.8 cm Doppler Measurements & Calculations Ao V2 max: 106.0 cm/sec LVOT Max Khoi: 92.4 cm/sec Ao V2 mean: 80.8 cm/sec LV V1 max P.4 mmHg Ao max P.5 mmHg LV V1 VTI: 20.9 cm Ao mean P.9 mmHg CHRIS(I,D): 3.5 cm2 Ao V2 VTI: 24.3 cm CHRIS(V,D): 3.5 cm2 sev ratio: 0.86 CHRIS indexed to BSA (cm^2/m^2): 1.7 MV E max khoi: 138.9 cm/sec TR max khoi: 251.7 cm/sec MV A max khoi: 124.3 cm/sec TR max P.3 mmHg MV E/A: 1.1 PA V2 max: 76.3 cm/sec Med Peak E' Khoi: 4.2 cm/sec PA V2 mean: 58.8 cm/sec E/E' med: 32.8 PA mean P.5 mmHg Lat Peak E' Khoi: 3.9 cm/sec PA pr(Accel): 27.6 mmHg E/E' lat: 35.6 E/e' average: 34.2 MV dec time: 0.31 sec MVA(VTI): 1.7 cm2 MV V2 mean: 91.1 cm/sec SV(LVOT): 84.6 ml MV mean P.9 mmHg MV V2 VTI: 51.1 cm Reading Physician:04:31 PM
== END ==
PROVIDERS: Family Provider Physician Assistant; PCP Nurse Practitioner; Referring Provider Internal Medicine Cardiovascular Disease; Visit Provider Internal Medicine Cardiovascular Disease
DX: Z98.890 Other specified postprocedural states (principal); I08.1 Rheumatic disorders of both mitral and tricuspid valves
CPT/HCPCS: 93306

== ENCOUNTER → 2023-10-22 10:11 | Outpatient (CLI) | payer OTHER, SELFPAY ==
[2023-10-22 11:43] LABS: Add Manual Diff / Slide Review NO; Basophils Absolute Auto 100 /uL (0-100); Eosinophils Absolute Auto 200 /uL (0-450); Eosinophils Percent Auto 3.4 % (2-4); Hematocrit 45.3 % (41-53); Hemoglobin 15.7 g/dL (13.5-17.5); Lymphocytes Absolute Auto 2600 /uL (1100-4500); Mean Corpuscular HGB Conc 34.5 % (30-36); Mean Corpuscular Volume 89.8 fL (80-100); Monocytes Absolute Auto 400 /uL (0-900); Monocytes Percent Auto 5.6 % (3-14); Neutrophils Absolute Auto 3900 /uL (1500-7000); Platelet Count 206 X10^3/uL (150-400); Red Blood Cell Count 5.05 X10^6/uL (4.5-5.9); Red Cell Distribution Width 13.7 % (11.6-14.8); White Blood Cell Count 7.2 X10^3/uL (4.5-11.0)
[2023-10-22 11:56] LABS: Alanine Aminotransferase 29 IU/L (<50); Albumin 3.9 g/dL (3.5-5.0); Albumin Globulin Ratio 1.3 (1.0-2.8); Alkaline Phosphatase 56 U/L (38-126); Aspartate Aminotransferase 30 IU/L (17-59); BUN Creatinine Ratio 25.6 (6-22); Blood Urea Nitrogen 21 mg/dL (9-20); Calcium 9.1 mg/dL (8.4-10.2); Carbon Dioxide 25 mmol/L (22-32); Chloride 106 mmol/L (98-107); Estimated Glomerular Filt Rate > 60 mL/min (>60); Glucose 80 mg/dL (80-110); HEMOLYSIS 17 (0-50); Magnesium 2.1 mg/dL (1.6-2.3); Potassium 4.3 mmol/L (3.4-5.1); Sodium 139 mmol/L (137-145); Total Protein 6.9 g/dL (6.3-8.2)
[2023-10-22 12:28] LABS: Thyroid Stimulating Hormone 1.45 uIU/mL (0.47-4.68)
== END ==
PROVIDERS: Family Provider Physician Assistant; PCP Nurse Practitioner; Referring Provider Internal Medicine Cardiovascular Disease; Visit Provider Internal Medicine Cardiovascular Disease
DX: I48.0 Paroxysmal atrial fibrillation (principal)
CPT/HCPCS: 36415; 80053; 83735; 84443; 85025

== ENCOUNTER → 2023-12-10 14:46 | Outpatient (CLI) | payer OTHER, SELFPAY ==
--- NOTE | 2023-12-10 | DI.ECHO.S_ITS ---
[facility]---------+ [facility] +---------+ : : [address] : [address] : : : : [id number] : : : : Phone: [phone]---------+ Echocardiogram Report + + :Name: ESTHELA JACKSON Study Date: 12/10/2023 Height: 73 in : :[facility] ReadingLocation: Weight: 177 lb : : Gender: Male BSA: 2.0 m2 : :: 1945 Age: 77 yrs BP: 115/83 mmHg: :Reason For Study: PAROXYSMAL ATRIAL FIBRILLATION : :Ordering Physician: MIGUELINA, : :NOELLE Performed By: Jeanne Zamudio : :Referring: NOELLE MCINTYRE : + + Interpretation Summary The patient was in atrial fibrillation with heart rates between 61-76 bpm during the exam. Previously sinus rhythm. The left ventricle is mildly dilated. LV size mildly increased. Left ventricular ejection fraction is estimated to be 50 +/- 5%. Previous LVEF 55 +/- 5%. The right ventricle is mildly dilated. The right ventricular systolic function is normal. The mitral valve has been surgically repaired and an annuloplasty ring sewn in place. Redundant elongated chordae are noted. The mitral valve mean gradient is 4.77 mmHg. Previously 3.9. No severe mitral stenosis. mmHg. . The E velocity across mitral valve about 1.48 m/s. Previously 1.38 m/s. There is mild mitral regurgitation. No significant change in mitral regurgitation. There is mild to moderate tricuspid regurgitation. Compared to the prior echo exam, there has been an increase in TR severity. Previously mild TR. Right ventricular systolic pressure is estimated to be 29.4 mmHg plus the clinically estimated CVP which cannot be estimated on this exam. Procedure: A two-dimensional transthoracic echocardiogram with color flow and Doppler was performed. The study quality was technically adequate. Comparison is made with the echocardiogram of 10/12/2022. The patient was in atrial fibrillation with heart rates between 61-76 bpm during the exam. Left Ventricle: The left ventricle is mildly dilated. There is normal left ventricular wall thickness. There is no thrombus. Left ventricular ejection fraction is estimated to be 50 +/- 5%. There are no focal wall motion abnormalities. Diastolic function could not be accurately assessed due to atrial fibrillation. Right Ventricle: The right ventricle is mildly dilated. There has been no significant change since the previous study. The right ventricular systolic function is normal. Atria: The left atrium is severely dilated. There has been no significant change since the previous study. The right atrium is moderately dilated. The right atrium has mildly increased in size since the prior echo exam. There is no Doppler evidence for an interatrial shunt. Mitral Valve: The mitral valve chordae are thickened and/or calcified. An annuloplasty ring is noted in the mitral position. The mitral valve has been surgically repaired and an annuloplasty ring sewn in place. Redundant elongated chordae are noted. The mitral valve mean gradient is 4.77 mmHg. Previously 3.9. No severe mitral stenosis. mmHg. . The E velocity across mitral valve about 1.48 m/s. Previously 1.38 m/s. There is mild mitral regurgitation. The mitral regurgitant jet is eccentrically directed. Aortic Valve: The aortic valve is trileaflet. The aortic valve opens well. There is no aortic valve stenosis. There is trace aortic regurgitation. There has been no significant change since the previous study. Tricuspid Valve: The tricuspid valve is normal. There is mild to moderate tricuspid regurgitation. Compared to the prior echo exam, there has been an increase in TR severity. Right ventricular systolic pressure is estimated to be 29.4 mmHg plus the clinically estimated CVP which cannot be estimated on this exam. Pulmonic Valve: The pulmonic valve leaflets are thin and pliable; valve motion is normal. There is mild pulmonic regurgitation. Great Vessels: The aortic root is normal size. The dimensions of the ascending aorta are normal. The inferior vena cava was not well visualized. Pericardium/ Pleura There is no pericardial effusion. There is no pleural effusion. MMode/2D Measurements & Calculations LVIDd: 6.1 cm LVOT diam: 2.3 cm LVIDs: 4.3 cm Ao root diam: 3.7 cm FS: 28.7 % asc Aorta Diam: 3.6 cm IVSd: 0.80 cm Ao Arch Diam (Prox Trans): 3.3 cm LVPWd: 0.85 cm LV olwry. diameter/BSA (cm/m^2): 3.0 LV sys. diameter/BSA (cm/m^2): 2.1 LA A2 area: 33.0 cm2 RA long axis: 6.1 cm LA A4 area: 33.0 cm2 RA area: 26.8 cm2 LA length (vol): 6.7 cm RA vol: 100.5 ml LA vol: 137.9 ml RA : 49.2 ml/m2 LA vol index: 67.5 ml/m2 RVD1 (basal): 4.5 cm TAPSE: 1.8 cm Doppler Measurements & Calculations Ao V2 max: 96.4 cm/sec LVOT Max Khoi: 62.6 cm/sec Ao V2 mean: 72.2 cm/sec LV V1 max P.6 mmHg Ao max P.7 mmHg LV V1 VTI: 12.6 cm Ao mean P.2 mmHg CHRIS(I,D): 2.7 cm2 Ao V2 VTI: 18.4 cm CHRIS(V,D): 2.6 cm2 sev ratio: 0.68 CHRIS indexed to BSA (cm^2/m^2): 1.3 MV E max khoi: 148.1 cm/sec TR max khoi: 271.2 cm/sec MV A max khoi: 1.2 cm/sec TR max P.4 mmHg MV E/A: 120.3 PA V2 max: 71.8 cm/sec Med Peak E' Khoi: 7.8 cm/sec PA V2 mean: 49.7 cm/sec E/E' med: 18.9 PA mean P.1 mmHg Lat Peak E' Khoi: 6.9 cm/sec PA pr(Accel): 48.2 mmHg E/E' lat: 21.5 E/e' average: 20.2 MV dec time: 0.30 sec MVA(VTI): 1.3 cm2 MV V2 mean: 88.4 cm/sec SV(LVOT): 50.3 ml MV mean P.0 mmHg MV V2 VTI: 39.8 cm Reading Physician:05:33 PM
== END ==
LOC: ECHO 14:47
PROVIDERS: Family Provider Physician Assistant; PCP Nurse Practitioner; Referring Provider Internal Medicine Cardiovascular Disease; Visit Provider Internal Medicine Cardiovascular Disease
DX: I48.0 Paroxysmal atrial fibrillation (principal); I08.1 Rheumatic disorders of both mitral and tricuspid valves
CPT/HCPCS: 93306

== ENCOUNTER → 2024-01-17 13:41 | Outpatient (CLI) | payer OTHER, SELFPAY ==
--- NOTE | 2024-01-18 19:39 | DI.NM.S_ITS ---
DATE OF SERVICE: 01/18/2024 PROCEDURE: Exercise treadmill stress and rest myocardial perfusion imaging with gating to assess ejection fraction and regional wall motion. ORDERING PROVIDER: MIGUEL ÁNGEL Arreola. INDICATIONS: The patient is a 78-year-old mal status post mitral valve repair for mitral valve regurgitation, now with paroxysmal atrial fibrillation, being started on flecainide therapy. EXERCISE TREADMILL TESTING: The patient was able to exercise for 6 minutes on a standard Isauro protocol suggesting average exercise capacity with an DENNY of -1%. He had an accelerated heart rate response to exercise with a resting heart rate of 86 bpm increasing to 124 bpm after 1 minute of exercise, and achieving a maximum heart rate of 164 bpm (114% of his predicted maximum). He had a normal blood pressure response and denied any chest discomfort or other anginal symptoms. His resting ECG shows atrial fibrillation with a controlled ventricular response and normal ST segments. With stress, there are no significant ST-segment shifts. There were occasional PVCs, rarely in couplets, but no other arrhythmias beyond his baseline atrial fibrillation. At 5 minutes of exercise at a heart rate of 149 bpm, 25.3 mCi of technetium-99m Myoview was injected and he was imaged 15 minutes later using a gated SPECT acquisition protocol. The day prior while at rest, he had been injected with 25.6 mCi of technetium-99m Myoview and was imaged 15 minutes later, again using a gated SPECT acquisition protocol. FINDINGS: 1. Raw data: There is fair myocardial tracer uptake. The lung/heart ratio is normal at 0.40 with a normal TID ratio of 1.14. 2. Quantitative gated SPECT: Post-stress ejection fraction is estimated at 47%, although visually appears it may be lower than this, likely in the 35% to 40% range, with global hypokinesis and no any focal wall motion abnormalities. Specifically, the distal inferior wall has normal contractility. The resting ejection fraction is also 47% and appears unchanged from the post-stress ejection fraction. Resting end-diastolic volume is borderline increased at 116mL. 3. Myocardial perfusion imaging: Post-stress supine images show a fairly normal myocardial perfusion pattern with the exception of a mild perfusion defect in the inferior wall in a pattern consistent with diaphragmatic attenuation, although becomes slightly more prominent in the distal inferior wall and inferoapex. The majority of this defect resolves on prone imaging, although with a slight residual defect in the distal inferior wall and inferoapex. The resting images show an identical perfusion pattern to the post-stress supine images without any areas of improvement. IMPRESSION: 1. Probable normal myocardial perfusion study. 2. Small, fixed inferior and inferoapical perfusion defect that predominantly resolves on prone imaging, although with a slight residual defect in the distal inferior and inferoapical segments, most likely due to attenuation artifact. While this could reflect a previous small nontransmural infarction, the absence of any wall motion abnormality in this area refutes this. There is no evidence for any myocardial ischemia. 4. Moderately reduced left ventricular systolic function with global hypokinesis and no focal wall motion abnormality, and borderline left ventricular enlargement. 5. Average exercise capacity with an accelerated heart rate response to exercise without angina or ECG evidence of ischemia. He was in atrial fibrillation throughout the study with occasional PVCs, rarely in couplets, but no other arrhythmias. Marco A [place] - RS/steve/[place] doc#: [id number]/job#: [id number] dd: 01/18/2024 13:12:00 dt: 01/18/2024 18:30:00 DICTATING MD/COPIES TO: Byron Phillip MD; MIGUEL ÁNGEL Arreola COPIES MYLENEE: MICHA; ; MIGUEL ÁNGEL Arreola
== END ==
LOC: NUCM 13:42
PROVIDERS: Family Provider Physician Assistant; PCP Nurse Practitioner; Referring Provider Nurse Practitioner Family; Visit Provider Nurse Practitioner Family
DX: I48.3 Typical atrial flutter (principal)
CPT/HCPCS: 78452; 93017; A9502

== ENCOUNTER → 2024-07-05 13:23 | Outpatient (CLI) | payer OTHER, SELFPAY ==
--- NOTE | 2024-07-05 13:24 | DI.US.S_ITS ---
PROCEDURE: US RENAL COMPLETE INDICATIONS: CHRONIC URINARY RETENTION TECHNIQUE: Real-time scanning was performed of the kidneys and bladder, with image documentation. COMPARISON: None. FINDINGS: Kidneys: Kidneys are normal in size. Right kidney measures 11.0 cm long; left kidney measures 11.7 cm long. Right renal cortical thickness is 1.5 cm; left renal cortical thickness is 1.5 cm. Moderate bilateral hydronephrosis is seen. No suspicious solid appearing renal lesion. Simple appearing exophytic cyst in midpole left kidney is seen measures 1.7 x 1.7 x 1.8 cm in size. Bladder: Enlarged prostate gland is noted with mass effect on floor of urinary bladder and measures 4.4 x 5 x 4.3 cm in size. Trabeculated bladder wall with mole bile debris within bladder lumen. Internal septations also in right side of urinary bladder. Prevoid volume is 639 cc. Postvoid volume is 523 cc. Suggestion of small diverticulum adjacent to bladder lumen is seen measures 1.4 x 1.3 x 0.8 cm in size. Mildly dilated bilateral distal ureters are noted measures 1.3 cm in diameter on the right side and 1 cm in diameter on the left side. No obstructing ureteral stone is identified. Miscellaneous: No free pelvic fluid. IMPRESSION: 1. Moderate bilateral hydronephrosis and hydroureter. No obstructing stone is seen. No solid appearing renal lesion. Simple cyst in left kidney as above. 2. Enlarged prostate gland with mass effect on floor of urinary bladder. Suggestion of bladder wall thickening with trabeculation and possible small diverticulum. No definite bladder wall mass. Thin internal septations and debris is seen. Large postvoid residual. Finding likely represent chronic urinary outlet obstruction. Dictated by: Pedro Pablo Odom M.D. on 07/05/2024 at 17:03 Approved by: Pedro Pablo Odom M.D. on 07/05/2024 at 17:07
== END ==
PROVIDERS: Family Provider Physician Assistant; PCP Nurse Practitioner; Referring Provider Physician Assistant Medical; Visit Provider Physician Assistant Medical
DX: N13.30 Unspecified hydronephrosis (principal); N28.1 Cyst of kidney, acquired; R33.9 Retention of urine, unspecified; N40.0 Benign prostatic hyperplasia without lower urinary tract symptoms; N32.89 Other specified disorders of bladder
CPT/HCPCS: 76770

== ENCOUNTER 2024-07-10 22:18 | Emergency (ER) | payer OTHER, SELFPAY ==
[2024-07-10 22:22] VITALS: BP 133/69; PULSE 100; RESP 16; TEMP 36.7; O2SAT 99; BMI 24.4
--- NOTE | 2024-07-10 22:33 | EKG_ITS ---
[address] [address] Test Date: 2024-07-10 Pat Name: Marco A Marcelo Department: [facility] Room: Gender: Male [employer]: TIN : 1945 Requested By: Order Number: [id number] Reading MD: Miguel Curran MD Measurements Intervals [place] Rate: 85 P: 83 WV: 174 QRS: -3 QRSD: 84 T: 66 QT: 362 QTc: 430 Interpretive Statements Normal sinus rhythm Inferior infarct , age undetermined Electronically Signed On 07-11-2024 7:20:54 PST by Miguel Curran MD
[2024-07-10 22:47] LABS: Add Manual Diff / Slide Review NO; Basophils Absolute Auto 100 /uL (0-100); Basophils Percent Auto 0.8 % (0-2); Eosinophils Absolute Auto 200 /uL (0-450); Eosinophils Percent Auto 1.6 % (2-4); Hematocrit 45.5 % (41-53); Hemoglobin 15.5 g/dL (13.5-17.5); Lymphocytes Absolute Auto 2300 /uL (1100-4500); Lymphocytes Percent Auto 15.5 % (25-40); Mean Corpuscular HGB Conc 34.1 % (30-36); Mean Corpuscular Hemoglobin 30.9 PG (26-34); Mean Corpuscular Volume 90.5 fL (80-100); Monocytes Absolute Auto 1000 /uL (0-900); Monocytes Percent Auto 6.6 % (3-14); Neutrophils Absolute Auto 11000 /uL (1500-7000); Neutrophils Percent Auto 75.5 % (50-75); Platelet Count 195 X10^3/uL (150-400); Red Blood Cell Count 5.03 X10^6/uL (4.5-5.9); Red Cell Distribution Width 13.7 % (11.6-14.8); White Blood Cell Count 14.6 X10^3/uL (4.5-11.0)
[2024-07-10 22:49] VITALS: PULSE 83; O2SAT 94
[2024-07-10 23:00] VITALS: PULSE 80; RESP 18; O2SAT 95
[2024-07-10 23:00] LABS: Alanine Aminotransferase 34 IU/L (<50); Albumin 4.1 g/dL (3.5-5.0); Albumin Globulin Ratio 1.2 (1.0-2.8); Alkaline Phosphatase 79 U/L (38-126); Aspartate Aminotransferase 29 IU/L (17-59); BUN Creatinine Ratio 21.4 (6-22); Bilirubin Total 1.1 mg/dL (0.2-1.3); Blood Urea Nitrogen 15 mg/dL (9-20); Calcium 9.3 mg/dL (8.4-10.2); Carbon Dioxide 27 mmol/L (22-32); Chloride 103 mmol/L (98-107); Estimated Glomerular Filt Rate > 60 mL/min (>60); Globulin 3.3 g/dL (1.7-4.1); Glucose 119 mg/dL (80-110); HEMOLYSIS < 15 (0-50); Lipase 36 U/L (23-300); Potassium 3.9 mmol/L (3.4-5.1); Sodium 134 mmol/L (137-145); Total Protein 7.4 g/dL (6.3-8.2)
[2024-07-10 23:32] LABS: Bilirubin Urine UA NEGATIVE (NEGATIVE); Color Urine UA RED; Glucose Urine UA NEGATIVE (Negative); Ketones Urine UA NEGATIVE (NEGATIVE); Leukocyte Esterase Urine UA TRACE (NEGATIVE); Nitrite Urine UA NEGATIVE (Negative); Occult Blood Urine UA 3+ (Negative); Protein Urine UA 3+ (Negative); Specific Gravity Urine UA 1.025 (1.000-1.035); pH Urine UA 6.5 (4.5-8.0)
[2024-07-10 23:34] LABS: Appearance Urine UA TURBID
[2024-07-10 23:35] LABS: Bacteria Urine Moderate (10-30); RBC Urine >100/HPF (0-5/HPF); Squamous Epithelial Cell Urine 0-1 /HPF (0-5/HPF); Urine Volume 10mL (spun); WBC Urine 1-5/HPF (0-5/HPF)
[2024-07-10 23:36] LABS: Culture Indicated Urine Cult Not Indicated
--- NOTE | 2024-07-10 23:39 | ED.MALEGU ---
HPI - Male Genitourinary General Chief complaint: Abdominal Pain Stated complaint: Catheter bag filling with dark red liquid Time Seen by Provider: 07/10/24 23:39 Mode of arrival: Ambulatory History of Present Illness HPI Narrative: patient is a 78-year-old male history of hypertension BPH presents to the emergency department for issues with Thomas catheter, to note patient went to urologist today and had a Thomas catheter placed this was placed at about 3:30 p.m.. He noted that there was some redness in his urine and he began to become redder therefore decided come into the ED for further evaluation treatment. To note patient is on Pradaxa, however he states that he has not taken this for the past 2 days. Related Data Home Medications Medication Instructions Recorded Confirmed dabigatran etexilate 150 mg 150 mg PO BID 11/15/23 11/15/23 capsule (Pradaxa) finasteride 5 mg tablet 5 mg PO DAILY 11/15/23 11/15/23 Previous Rx's Medication Instructions Recorded metoprolol succinate 25 mg 25 mg PO QDAY #90 tabs 09/30/22 tablet,extended release 24 hr (Toprol XL) tamsulosin 0.4 mg capsule (Flomax) 0.4 mg PO QDAY #90 caps 09/30/22 cephalexin 500 mg capsule 500 mg PO TID 7 days #21 caps 07/11/24 Allergies Allergy/AdvReac Type Severity Reaction Status Date / Time No Known Drug Allergies Allergy Verified 11/15/23 10:38 Review of Systems Review of Systems Narrative: General: Denies fever, chills, weight loss HEENT: Denies headache, eye drainage, eye irritation, head trauma, sore throat, voice change Cardiovascular: Denies any chest pain, palpitations, shortness of breath, tachycardia Respiratory: Denies any shortness of breath, cough, wheeze, stridor GI/: Thomas catheter draining red urine, Denies any abdominal pain, nausea, vomiting, diarrhea, bright red blood per rectum, melanotic stools, urinary frequency, urinary retention, dysuria, MSK: Denies any joint pain, muscle pains, swelling Skin: Denies any rashes, lesions, discoloration Neuro: Denies any headache, lightheadedness, dizziness, fainting, weakness Psych: Denies SI/HI Patient History Medical History (Updated 07/11/24 @ 01:02 by Rigoberto 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 Sister No problems noted. Social History Smoking Status: Former smoker Smoking Status: Former smoker alcohol intake frequency: a few times a week Substance Use Type: does not use Exam Narrative Exam Narrative: General: Cooperative, comfortable, well-developed, not in acute distress HEENT: Normocephalic, atraumatic, PERRLA, normal sclera, eyelids normal, Neck: Active full range of motion, atraumatic Chest: Normal to inspection, negative crepitus, no overlying erythema ecchymosis Respiratory: Normal respiratory effort, not in acute respiratory distress, clear to auscultation bilaterally negative cough, wheeze, tachypnea, rhonchi, rales Cardiology: Regular rate rhythm negative gallop, murmur, rubs GI/: Normal to inspection, soft, nonrigid, no tenderness to palpation, Thomas catheter in place, no gross abnormalities noted to the meatus of the penis, there is some mild hematuria noted to the Thomas bag, but draining appropriately MSK: Full range of active range of motion of all 4 extremities, atraumatic Skin: No rashes lesions noted Neuro: Alert awake oriented x3, moves all 4 extremities spontaneously, cranial nerves intact, able to answer all questions appropriately follows commands appropriately Psych: Cooperative, negative suicidal or homicidal ideations Initial Vital Signs Initial Vital Signs: Vital Signs Temperature 98.1 F 07/10/24 22:22 Pulse Rate 100 H 07/10/24 22:22 Respiratory Rate 16 07/10/24 22:22 Blood Pressure 133/69 07/10/24 22:22 Pulse Oximetry 99 07/10/24 22:22 Oxygen Delivery Method Room Air 07/10/24 22:22 Course Orders Ordered: ED Orders 07/10/24 22:33 EKG-12 Lead Stat 07/10/24 22:37 Complete Blood Count AUTO DIFF Stat Comprehensive Metabolic Panel Stat Lipase Stat 07/10/24 23:20 Urinalysis and Microscopic Stat Ondansetron HCl (Ondansetron 4 Mg/2 Ml Inj) 4 mg IV NOW PRN PRN Reason: Nausea And Vomiting Ondansetron HCl (Ondansetron 4 Mg Odt) 4 mg PO NOW PRN PRN Reason: Nausea And Vomiting Discontinued Medications Cephalexin HCl (Cephalexin 250 Mg Capsule) 500 mg PO NOW ONE Stop: 07/11/24 01:01 Vital Signs Vital signs: Vital Signs - 8 hr 07/10/24 22:22 07/10/24 22:49 07/10/24 23:00 Temperature 98.1 F Pulse Rate 100 H 83 80 Respiratory Rate 16 18 Blood Pressure 133/69 Pulse Oximetry 99 94 95 Oxygen Delivery Method Room Air MDM - Male Genitourinary Differential Diagnosis Differential diagnosis: Likely urinary tract infection and other ( KINSEY, Thomas catheter malfunction) Lab Data 07/10/24 22:37 07/10/24 22:37 Labs: Lab Results 07/10/24 07/10/24 Range/Units 22:37 23:20 WBC 14.6 H (4.5-11.0) X10^3/uL RBC 5.03 (4.5-5.9) X10^6/uL Hgb 15.5 (13.5-17.5) g/dL Hct 45.5 (41-53) % MCV 90.5 (80-100) fL MCH 30.9 (26-34) PG MCHC 34.1 (30-36) % RDW 13.7 (11.6-14.8) % Plt Count 195 (150-400) X10^3/uL Neut % (Auto) 75.5 H (50-75) % Lymph % (Auto) 15.5 L (25-40) % Mitchell % (Auto) 6.6 (3-14) % Eos % (Auto) 1.6 L (2-4) % Baso % (Auto) 0.8 (0-2) % Neut # (Auto) 29846 H (5064-8651) /uL Lymph # (Auto) 2300 (5451-0978) /uL Mitchell # (Auto) 1000 H (0-900) /uL Eos # (Auto) 200 (0-450) /uL Baso # (Auto) 100 (0-100) /uL Sodium 134 L (137-145) mmol/L Potassium 3.9 (3.4-5.1) mmol/L Chloride 103 (98-107) mmol/L Carbon Dioxide 27 (22-32) mmol/L BUN 15 (9-20) mg/dL Creatinine 0.70 (0.66-1.25) mg/dL Estimated GFR > 60 (>60) mL/min BUN/Creatinine Ratio 21.4 (6-22) Glucose 119 H (80-110) mg/dL Calcium 9.3 (8.4-10.2) mg/dL Total Bilirubin 1.1 (0.2-1.3) mg/dL AST 29 (17-59) IU/L ALT 34 (<50) IU/L Alkaline Phosphatase 79 (38-126) U/L Total Protein 7.4 (6.3-8.2) g/dL Albumin 4.1 (3.5-5.0) g/dL Globulin 3.3 (1.7-4.1) g/dL Albumin/Globulin Ratio 1.2 (1.0-2.8) Lipase 36 (23-300) U/L Urine Color Red Urine Appearance Turbid Urine pH 6.5 (4.5-8.0) Ur Specific [place] 1.025 (1.000-1.035) Urine Protein 3+ H (Negative) Urine Glucose (UA) Negative (Negative) g/dL Urine Ketones Negative (NEGATIVE) Urine Occult Blood 3+ H (Negative) Urine Nitrate Negative (Negative) Urine Bilirubin Negative (NEGATIVE) Urine Urobilinogen 1.0 (0.2) E.U./dL Ur Leukocyte Esterase Trace H (NEGATIVE) Urine RBC >100/hpf H (0-5/HPF) Urine WBC 1-5/hpf (0-5/HPF) Ur Squamous Epith Cells 0-1 /hpf (0-5/HPF) Urine Bacteria Moderate (10-30) H (None) Ur Culture Indicated? Cult not indicated Vol Urine Centrifuged 10ml (spun) MDM Narrative Medical decision making narrative: patient is a 78-year-old male who presents to the emergency department after having Thomas catheter placed earlier today by his urologist. He states that initially it was draining normal colored urine however over the past several hours he noticed that it started turning bloody. He denies any pain or discomfort, lab work performed here shows patient with out anemia, creatinine normal, here in the emergency department Thomas is draining appropriately but does note some hematuria, did flush the Thomas catheter to clear, monitored here with out gross hematuria, urinalysis was sent did show some moderate bacteria therefore will start patient on antibiotic for urinary tract infection, patient was instructed to follow up with Urology in an outpatient setting he verbalized understanding of this and agrees to being discharged home with outpatient follow up Discharge Plan Departure Patient Disposition: Home Clinical Impression: Acute UTI, Complication of Thomas catheter Activity Restrictions/Additional Instructions: please follow up with your urologist Please read the discharge instructions sheet carefully and bring all papers to all doctor follow-up visits, as it may contain information that your doctor may want to see. Disease processes change and evolve, if your symptoms worsen or if you develop any new symptoms that are concerning to you please return for evaluation. Your evaluation today does not show any evidence of any life-threatening/serious illnesses requiring admission to the hospital or surgery. Please follow-up with your doctor for re-evaluation in approximately 1 day. Seek immediate medical attention for any worrisome symptoms. Prescriptions: New cephalexin 500 mg capsule 500 mg PO TID 7 Days Qty: 21 0RF No Action tamsulosin [Flomax] 0.4 mg capsule 0.4 mg PO QDAY Qty: 90 3RF Rx Instructions: Take 1 tablet by mouth daily for BPH symptoms metoprolol succinate [Toprol XL] 25 mg tablet extended release 24 hr 25 mg PO QDAY Qty: 90 3RF Rx Instructions: Take 1 tab by mouth daily for hypertension. finasteride 5 mg tablet 5 mg PO DAILY dabigatran etexilate [Pradaxa] 150 mg capsule 150 mg PO BID Referrals: Luh Briggs DO [Primary Care Provider] - Stand Alone Forms: Patient Portal/API/Survey
--- NOTE | 2024-07-11 00:50 | PC.NURSE ---
cross irrigated with 240 ml sterile water with pink tinged water returned, no clots noted, new leg bag applied
[2024-07-11] MEDS: cephALEXin 250 MG CAPSULE 500 MG PO (01:15)
[2024-07-11 01:16] VITALS: O2SAT 92
[2024-07-11 01:17] VITALS: BP 111/60; PULSE 75; RESP 18; O2SAT 95
== END 2024-07-11 01:41 | disposition home or self-care (01) ==
PROVIDERS: Emergency Provider Student in an Organized Health Care Education/Training Program; Family Provider Physician Assistant; PCP Family Medicine
DX: N39.0 Urinary tract infection, site not specified (principal); T83.098A Other mechanical complication of other urinary catheter, initial encounter; R10.9 Unspecified abdominal pain; Z79.01 Long term (current) use of anticoagulants
CPT/HCPCS: 36415; 51798; 80053; 81001; 83690; 85025; 93005; 93010; 99284

== ENCOUNTER 2024-07-30 00:01 | Emergency (ER) | payer OTHER, SELFPAY ==
[2024-07-30 00:12] VITALS: BP 147/87; PULSE 82; RESP 17; TEMP 36.6; O2SAT 98; BMI 24.4
--- NOTE | 2024-07-30 00:37 | ED.GENADULT ---
HPI - General Adult General Chief complaint: Urogenital-Male Stated complaint: nothing coming out of catheter for 6-8hrs Time Seen by Provider: 07/30/24 00:23 Source: patient Mode of arrival: Ambulatory History of Present Illness HPI narrative: Patient was a 78-year-old male. History of BPH. Has an indwelling Thomas catheter has been in place for the past couple weeks. He states that he emptied the Thomas catheter late this afternoon but has had no output from the catheter since then. He was a prescription for Pradaxa but has not been taking this medication. He was on tamsulosin. He was recently treated for urinary tract infection but has been off antibiotics now for several days. Describes lower abdominal pain. No fevers. No vomiting. Related Data Home Medications Medication Instructions Recorded Confirmed dabigatran etexilate 150 mg 150 mg PO BID 11/15/23 07/12/24 capsule (Pradaxa) finasteride 5 mg tablet 5 mg PO DAILY 11/15/23 07/12/24 Previous Rx's Medication Instructions Recorded tamsulosin 0.4 mg capsule (Flomax) 0.4 mg PO QDAY #90 caps 09/30/22 levofloxacin 750 mg tablet 750 mg PO DAILY 6 days #6 tabs 07/30/24 Allergies Allergy/AdvReac Type Severity Reaction Status Date / Time No Known Drug Allergies Allergy Verified 07/12/24 08:51 Review of Systems Review of Systems Narrative: See HPI Patient History Medical History POLST (Physician Orders for Life-Sustaining Treatment) Encounter for subsequent annual wellness visit (AWV) 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 Sister No problems noted. Social History Smoking Status: Former smoker Smoking Status: Former smoker alcohol intake frequency: a few times a week Substance Use Type: does not use Exam Initial Vital Signs Initial Vital Signs: Vital Signs Temperature 97.9 F 07/30/24 00:12 Pulse Rate 82 07/30/24 00:12 Respiratory Rate 17 07/30/24 00:12 Blood Pressure 147/87 H 07/30/24 00:12 Pulse Oximetry 98 07/30/24 00:12 Oxygen Delivery Method Room Air 07/30/24 00:12 GI Inspection: non-distended Other: Thomas catheter in place Course Orders Ordered: ED Orders 07/30/24 00:56 Ictotest Urine Stat Urinalysis and Microscopic Stat Urine Culture Stat Discontinued Medications Levofloxacin (Levofloxacin 250 Mg Tablet) 750 mg PO NOW ONE Stop: 07/30/24 01:34 Last Admin: 07/30/24 01:37 Dose: 750 mg Documented By: REE Lidocaine HCl (Lidocaine 2% (Glydo) 6 Ml Gel) 6 ml TOP NOW ONE Stop: 07/30/24 00:39 Last Admin: 07/30/24 00:58 Dose: 6 ml Documented By: JACQUELINE Vital Signs Vital signs: Vital Signs - 8 hr 07/30/24 00:12 07/30/24 01:38 Temperature 97.9 F Pulse Rate 82 69 Respiratory Rate 17 14 Blood Pressure 147/87 H 132/74 Pulse Oximetry 98 97 Oxygen Delivery Method Room Air Room Air Medical Decision Making Medical Records Medical records reviewed: Yes I reviewed the patient's medical records. Lab Data Lab results reviewed: Yes I reviewed the patient's lab results. Labs: Lab Results 07/30/24 Range/Units 00:56 Urine Color Brown Urine Appearance Cloudy Urine pH 6.5 (4.5-8.0) Ur Specific [place] 1.020 (1.000-1.035) Urine Protein 3+ H (Negative) Urine Glucose (UA) Negative (Negative) g/dL Urine Ketones Trace H (NEGATIVE) Urine Occult Blood 3+ H (Negative) Urine Nitrate Positive H (Negative) Urine Bilirubin 2+ H (NEGATIVE) Ur Bilirubin Confirm Negative (Negative) Urine Urobilinogen 4.0 H (0.2) E.U./dL Ur Leukocyte Esterase 2+ H (NEGATIVE) Urine RBC 10-30/hpf H (0-5/HPF) Urine WBC >100/hpf H (0-5/HPF) Ur Squamous Epith Cells 1-5 /hpf (0-5/HPF) Urine Bacteria Many (>30) H (None) Ur Culture Indicated? Cult not indicated Vol Urine Centrifuged 10ml (spun) MDM Narrative Medical decision making narrative: Initial attempt to flush the catheter was unsuccessful. The catheter that was in place was removed and a new 1 was placed with drainage of dark/cloudy urine. There was quite a bit of sediment in the urine as well. Urinalysis today is very consistent with a urinary tract infection. Because of his indwelling Thomas catheter status was to be treated as a complicated UTI. He was given Levaquin here in the emergency department will send home with a prescription for this. Low suspicion for pyelonephritis. A urine culture was pending at the time of his discharge. He was afebrile. Tolerating oral intake. He feels much better after the Thomas catheter was removed. He does have a urologist. Recommend that he continue the rest of his medications as directed and contact his urologist for follow-up. He was given return precautions. He expressed understanding and agreement Discharge Plan Departure Patient Disposition: Home Clinical Impression: Urinary tract infection Instructions: DI for Urinary Tract Infection (UTI) Activity Restrictions/Additional Instructions: Continue to take all of your medications as directed. Start the antibiotics as directed. There is a urine culture pending at the time of your discharge and we will contact you if we need to change antibiotics based on this. Return to the emergency department for new or worsening symptoms. Prescriptions: New levofloxacin 750 mg tablet 750 mg PO DAILY 6 Days Qty: 6 0RF No Action tamsulosin [Flomax] 0.4 mg capsule 0.4 mg PO QDAY Qty: 90 3RF Rx Instructions: Take 1 tablet by mouth daily for BPH symptoms finasteride 5 mg tablet 5 mg PO DAILY dabigatran etexilate [Pradaxa] 150 mg capsule 150 mg PO BID Referrals: Jonathan Ho MD [Physician] - Luh Briggs DO [Primary Care Provider] - Stand Alone Forms: Patient Portal/API/Survey
[2024-07-30] MEDS: LIDOCAINE 2% (GLYDO) 6 ML GEL TOP (00:58)
--- NOTE | 2024-07-30 01:02 | PC.NURSE ---
Pt to ED with complaints of cross cath not draining. Bladder scan 322ml. Pt appeared very uncomfortable when arrived to room. Attempted to irrigate cath, unsuccessful. Cath removed, ballon appeared intact. Cross replaced without difficulty. initial outflow yellow with sediment, cloudy. Turned tea colored. 500mL drained. Provider notified of current status. Vital signs stable, pt with some increased comfrot but still appears shaky. Call ligth in reach, will continue to monitor.
[2024-07-30 01:09] LABS: Appearance Urine UA CLOUDY; Bilirubin Urine UA 2+ (NEGATIVE); Color Urine UA BROWN; Glucose Urine UA NEGATIVE (Negative); Ketones Urine UA TRACE (NEGATIVE); Leukocyte Esterase Urine UA 2+ (NEGATIVE); Nitrite Urine UA POSITIVE (Negative); Occult Blood Urine UA 3+ (Negative); Protein Urine UA 3+ (Negative); pH Urine UA 6.5 (4.5-8.0)
[2024-07-30 01:17] LABS: Ictotest Urine Negative (Negative); Urine Volume 10mL (spun)
[2024-07-30 01:18] LABS: Bacteria Urine Many (>30); Culture Indicated Urine Cult Not Indicated; RBC Urine 10-30/HPF (0-5/HPF); Squamous Epithelial Cell Urine 1-5 /HPF (0-5/HPF); WBC Urine >100/HPF (0-5/HPF)
[2024-07-30] MEDS: levoFLOXacin 250 MG TABLET 750 MG PO (01:37)
[2024-07-30 01:38] VITALS: BP 132/74; PULSE 69; RESP 14; O2SAT 97
== END 2024-07-30 01:54 | disposition home or self-care (01) ==
PROVIDERS: Emergency Provider Emergency Medicine; Family Provider Physician Assistant; PCP Family Medicine
DX: N39.0 Urinary tract infection, site not specified (principal); T82.9XXA Unspecified complication of cardiac and vascular prosthetic device, implant and graft, initial encounter; Z79.01 Long term (current) use of anticoagulants
CPT/HCPCS: 81001; 87077; 87086; 87186; 99283; 99284

== ENCOUNTER → 2024-08-01 15:57 | Outpatient (CLI) | payer OTHER, SELFPAY ==
--- NOTE | 2024-08-01 15:58 | DI.US.S_ITS ---
PROCEDURE: US RENAL COMPLETE INDICATIONS: HYRONEPHROSIS / URINARY RETENTION TECHNIQUE: Real-time scanning was performed of the kidneys and bladder, with image documentation. COMPARISON: [facility], US, US RENAL COMPLETE, 07/05/2024, 13:55. FINDINGS: Kidneys: Kidneys are normal in size. Right kidney measures 10.6 cm long; left kidney measures 12.0 cm long. Right renal cortical thickness is 1.8 cm; left renal cortical thickness is 1.9 cm. Renal cortical echotexture is normal. No hydronephrosis or nephrolithiasis. No suspicious solid mass lesions. There is a exophytic left renal cyst measuring 2.1 x 1.9 x 1.8 cm. Bladder: Urinary bladder with decompressed by Thomas catheter. Ureteral jets were not visualized on this examination. Postvoid residual volume not able to be measured. Miscellaneous: No free pelvic fluid. A gallstone is noted with possible wall thickening. No pericholecystic fluid. Possible gallbladder polyp near the neck of the gallbladder.. IMPRESSION: 1. No sonographic evidence for obstructive uropathy on either side. 2. Cholelithiasis with mild wall thickening and possible gallbladder neck polyp. Recommend dedicated right upper quadrant ultrasound for further evaluation and correlation with clinical examination. 3. Limited evaluation of the urinary bladder secondary to being decompressed by a Thomas catheter. Dictated by: Franklin Gómez M.D. on 08/02/2024 at 10:58 Approved by: Franklin Gómez M.D. on 08/02/2024 at 11:07
== END ==
PROVIDERS: Family Provider Physician Assistant; PCP Family Medicine; Referring Provider Physician Assistant Medical; Visit Provider Physician Assistant Medical
DX: N28.1 Cyst of kidney, acquired (principal); R33.9 Retention of urine, unspecified; K80.20 Calculus of gallbladder without cholecystitis without obstruction
CPT/HCPCS: 76770

== ENCOUNTER → 2024-08-04 11:13 | Outpatient (CLI) | payer OTHER, SELFPAY ==
[2024-08-04 14:07] LABS: BUN Creatinine Ratio 27.2 (6-22); Blood Urea Nitrogen 22 mg/dL (9-20); Calcium 9.3 mg/dL (8.4-10.2); Carbon Dioxide 25 mmol/L (22-32); Chloride 108 mmol/L (98-107); Estimated Glomerular Filt Rate > 60 mL/min (>60); Glucose 77 mg/dL (80-110); HEMOLYSIS < 15 (0-50); Potassium 3.8 mmol/L (3.4-5.1); Sodium 139 mmol/L (137-145)
== END ==
PROVIDERS: Family Provider Physician Assistant; PCP Family Medicine; Referring Provider Physician Assistant Medical; Visit Provider Physician Assistant Medical
DX: N13.30 Unspecified hydronephrosis (principal); R33.9 Retention of urine, unspecified
CPT/HCPCS: 36415; 80048

== ENCOUNTER → 2024-08-16 09:04 | Outpatient (CLI) | payer OTHER, SELFPAY | PROVIDERS: Family Provider Physician Assistant; PCP Family Medicine; Visit Provider Urology | DX: N40.0 Benign prostatic hyperplasia without lower urinary tract symptoms (principal) | CPT/HCPCS: 87077; 87086 ==

== ENCOUNTER → 2024-09-14 09:10 | Outpatient (CLI) | payer OTHER, SELFPAY | PROVIDERS: Family Provider Physician Assistant; PCP Family Medicine; Referring Provider Urology; Visit Provider Urology | DX: R33.9 Retention of urine, unspecified (principal); N40.1 Benign prostatic hyperplasia with lower urinary tract symptoms; N13.8 Other obstructive and reflux uropathy; Z97.8 Presence of other specified devices | CPT/HCPCS: 87077; 87086; 87147; 87186 ==

== ENCOUNTER 2024-09-30 18:11 | Emergency (ER) | payer OTHER, SELFPAY ==
[2024-09-30 18:12] VITALS: BP 126/74; PULSE 105; RESP 18; TEMP 36.8; O2SAT 98; BMI 24.4
--- NOTE | 2024-09-30 18:30 | ED_ITS ---
HPI - Male Genitourinary <Char Murrieta PA-C - Last Filed: 09/30/24 19:59> General Chief complaint: Urogenital-Male Stated complaint: catheter issue Time Seen by Provider: 09/30/24 18:39 Source: patient Mode of arrival: Ambulatory History of Present Illness HPI Narrative: Mr. Marco A Boston is a very pleasant 78-year-old male with a past medical history of BPH with chronic indwelling Thomas catheter, paroxysmal atrial fibrillation s/p ablation, not on AC who presents to the emergency department for his Thomas catheter not draining since approximately 1500 today (3-4 hours). Patient states his urine has been having a lot of sediment in it and in July he had to have his catheter exchange in the emergency department because of a blockage and on 09/14/2024 when he had his regular catheter change with urologist Dr. Ho there was a lot of sediment as well. States that his catheter stopped draining earlier today and he has been having some lower abdominal pain and discomfort since then which prompted his emergency department arrival. Reports that he completed a course of antibiotics few days ago that he can not recall. Denies fevers or chills, flank pain, nausea, vomiting, diarrhea, constipation, hematuria. Related Data Home Medications Medication Instructions Recorded Confirmed finasteride 5 mg tablet 5 mg PO DAILY 11/15/23 09/14/24 tamsulosin 0.4 mg capsule (Flomax) 0.8 mg PO QDAY 08/10/24 09/14/24 Previous Rx's Medication Instructions Recorded cefdinir 300 mg capsule 300 mg PO BID #14 caps 09/18/24 Allergies Allergy/AdvReac Type Severity Reaction Status Date / Time No Known Drug Allergies Allergy Verified 08/16/24 08:23 Review of Systems <Char Murrieta PA-C - Last Filed: 09/30/24 19:59> Review of Systems ROS Unobtainable: All systems reviewed & are unremarkable except as noted in HPI and below Patient History <Char Murrieta PA-C - Last Filed: 09/30/24 19:59> Medical History History of hydronephrosis Thomas catheter present Retention of urine POLST (Physician Orders for Life-Sustaining Treatment) Encounter for subsequent annual wellness visit (AWV) 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 Social History marital status: number of children: 1 Smoking Status: Former smoker alcohol intake: current caffeine: No Type(s) of exercise: bicycling frequency: 3-4 times per week duration: 60-90 minutes/day Smoking Status: Former smoker alcohol intake frequency: a few times a week Exam <Char Murrieta PA-C - Last Filed: 09/30/24 19:59> Narrative Exam Narrative: GENERAL: 78 year old patient appears stated age. Well-developed patient, in mild discomfort. HEAD: Atraumatic. Normocephalic. NECK: Trachea midline. Cervical ROM intact. CARDIOVASCULAR: Increased rate and regular rhythm. RESPIRATORY: ?Nonlabored respirations. ?Speaking in clear, full sentences. ? GASTROINTESTINAL: Abdomen distended, no rebound or guarding, normal bowel sounds. Normal external genitalia with Thomas catheter in place. NEURO: AOx3. ?Clear speech. ?Moves all 4 extremities appropriately. SKIN: No rash or erythema of visible areas Initial Vital Signs Initial Vital Signs: Vital Signs Temperature 98.3 F 09/30/24 18:12 Pulse Rate 105 H 09/30/24 18:12 Respiratory Rate 18 09/30/24 18:12 Blood Pressure 126/74 09/30/24 18:12 Pulse Oximetry 98 09/30/24 18:12 Oxygen Delivery Method Room Air 09/30/24 18:12 <Sole Shelton MD - Last Filed: 09/30/24 20:24> Initial Vital Signs Initial Vital Signs: Vital Signs Temperature 98.3 F 09/30/24 18:12 Pulse Rate 105 H 09/30/24 18:12 Respiratory Rate 18 09/30/24 18:12 Blood Pressure 126/74 09/30/24 18:12 Pulse Oximetry 98 02/01/25 18:12 Oxygen Delivery Method Room Air 09/30/24 18:12 Course <Char Murrieta PA-C - Last Filed: 09/30/24 19:59> Orders Ordered: ED Orders 09/30/24 19:09 Urine Culture Stat Urine Microscopic Stat Discontinued Medications Lidocaine HCl (Lidocaine 2% (Glydo) 6 Ml Gel) 6 ml TOP NOW ONE Stop: 09/30/24 18:30 Last Admin: 09/30/24 19:24 Dose: 6 ml Documented By: TERESA Vital Signs Vital signs: Vital Signs - 8 hr 09/30/24 18:12 09/30/24 19:59 Temperature 98.3 F Pulse Rate 105 H 92 H Respiratory Rate 18 18 Blood Pressure 126/74 Pulse Oximetry 98 99 Oxygen Delivery Method Room Air Room Air <Sole Shelton MD - Last Filed: 09/30/24 20:24> Orders Ordered: ED Orders 09/30/24 19:09 Urine Culture Stat Urine Microscopic Stat Discontinued Medications Lidocaine HCl (Lidocaine 2% (Glydo) 6 Ml Gel) 6 ml TOP NOW ONE Stop: 09/30/24 18:30 Last Admin: 09/30/24 19:24 Dose: 6 ml Documented By: GW Vital Signs Vital signs: Vital Signs - 8 hr 09/30/24 18:12 09/30/24 19:59 Temperature 98.3 F Pulse Rate 105 H 92 H Respiratory Rate 18 18 Blood Pressure 126/74 Pulse Oximetry 98 99 Oxygen Delivery Method Room Air Room Air MDM - Male Genitourinary <Char Murrieta PA-C - Last Filed: 09/30/24 19:59> Medical Records Attestation: I reviewed the patient's medical records. Lab Data Labs: Lab Results 09/30/24 Range/Units 19:09 Urine RBC 0-1/hpf D (0-5/HPF) Urine WBC 30-100/hpf H (0-5/HPF) Ur Squamous Epith Cells 0-1 /hpf (0-5/HPF) Amorphous Sediment 3+ Urine Bacteria Many (>30) H (None) Ur Culture Indicated? Specimen cultured Vol Urine Centrifuged 10ml (spun) MDM Narrative Medical decision making narrative: 78-year-old male with a past medical history of BPH with chronic indwelling Thomas catheter, paroxysmal atrial fibrillation s/p ablation, not on AC who presents to the emergency department for his Thomas catheter not draining since approximately 1500 today (3-4 hours). Differential diagnosis includes but is not limited to Thomas catheter blockage, UTI, clots, cystitis obstruction, etc. On exam patient is in mild discomfort secondary to full bladder, afebrile, abdomen distended. Extensive review of chart history reveals patient has 18 [place] coude Thomas catheter that was exchange on 09/14/2024, urine culture was obtained at that time and grew Proteus hauseri, Citrobacter freundii, and Staphylococcus aureus. Because of patient's discomfort a new catheter was immediately placed up to the hub without difficulty however there was not immediate return of urine therefore sterile water was used to flush the catheter and then there was approximately 600 mL of dark yellow urinary output. Post void bladder scanner revealed 10ml of urine. Attending physician confirmed using ultrasound. Patient feeling much better, abdomen soft, nontender, nondistended. UA does reveal WBCs and bacteria however after shared decision-making with the patient, we made the decision to hold off on empiric antibiotics until his urine culture results in the next 2-3 days. Discussed strict ED return precautions with the patient. Advised follow up with Urology, Dr. Ho. Patient verbalized understanding of all information is agreeable to the plan. He is stable for discharge home. <Sole Shelton MD - Last Filed: 09/30/24 20:24> Lab Data Labs: Lab Results 09/30/24 Range/Units 19:09 Urine RBC 0-1/hpf D (0-5/HPF) Urine WBC 30-100/hpf H (0-5/HPF) Ur Squamous Epith Cells 0-1 /hpf (0-5/HPF) Amorphous Sediment 3+ Urine Bacteria Many (>30) H (None) Ur Culture Indicated? Specimen cultured Vol Urine Centrifuged 10ml (spun) Discharge Plan Departure Patient Disposition: Home Clinical Impression: Thomas catheter problem Qualifiers: Encounter type: initial encounter Qualified Code(s): T83.9XXA - Unspecified complication of genitourinary prosthetic device, implant and graft, initial enco unter Instructions: How to Care for Your Thomas Catheter -- Male Activity Restrictions/Additional Instructions: Dear Mr. Boston, Today you were evaluated for a blockage in your Thomas catheter. We replaced your Thomas catheter and were able to empty your bladder. It is very important to follow up with your urologist, Dr. Ho, for further evaluation as it appears your catheter was getting blocked from some thick sediment in the urine. Today a urine culture was obtained and you will be called in 3 days if specific antibiotics are needed. Please return to the emergency department immediately if you develop another blockage of the Thomas catheter, severe pain, fevers, any other concern. Please follow up with your primary care doctor within the next 2-3 days for ER follow-up. (If you do not have a PCP you can call [phone]. ?to schedule an appointment with an [facility] Primary Care Provider) IF YOU DEVELOP ANY NEW OR WORSENING SYMPTOMS, RETURN TO THE ER! Please read the attached instructions, they highlight more specific treatments and interventions for you at home. Thank you for letting me participate in your care, Char Murrieta PA-C Prescriptions: No Action cefdinir 300 mg capsule 300 mg PO BID Qty: 14 0RF finasteride 5 mg tablet 5 mg PO DAILY tamsulosin [Flomax] 0.4 mg capsule 0.8 mg PO QDAY Rx Instructions: Take 2 tablet by mouth daily for BPH symptoms Referrals: Luh Briggs DO [Primary Care Provider] - Stand Alone Forms: Patient Portal/API/Survey ED Sign-out <Sole Shelton MD - Last Filed: 09/30/24 20:24> Cosign ED Attending Cosbarbature Attestation: I have seen and evaluated this patient. He had resolution of his issues after change of Thomas catheter. Ultrasound shows empty bladder.
[2024-09-30] MEDS: LIDOCAINE 2% (GLYDO) 6 ML GEL TOP (19:24)
--- NOTE | 2024-09-30 19:26 | PC.NURSE ---
patient here in department with chronic indwelling catheter that is not patent. Recently had it changed two weeks ago, patient appears very uncomfortable. Provider okays placement of new cross, initially no drainage is present, irrigated catheter with 50cc of sterile water. Catheter is patent and draining, 600cc orange urine with strong odor. Bladder scanner shows empty bladder
[2024-09-30 19:50] LABS: RBC Urine 0-1/HPF (0-5/HPF); Urine Volume 10mL (spun); WBC Urine 30-100/HPF (0-5/HPF)
[2024-09-30 19:51] LABS: Amorphous Sediment Urine 3+; Bacteria Urine Many (>30); Culture Indicated Urine Specimen Cultured; Squamous Epithelial Cell Urine 0-1 /HPF (0-5/HPF)
[2024-09-30 19:59] VITALS: PULSE 92; RESP 18; O2SAT 99
== END 2024-09-30 19:49 | disposition home or self-care (01) ==
PROVIDERS: Emergency Provider Physician Assistant; Family Provider Physician Assistant; PCP Family Medicine
DX: T83.9XXA Unspecified complication of genitourinary prosthetic device, implant and graft, initial encounter (principal); I48.0 Paroxysmal atrial fibrillation; Z79.01 Long term (current) use of anticoagulants; E78.5 Hyperlipidemia, unspecified
CPT/HCPCS: 81015; 87077; 87086; 87186; 99283

== ENCOUNTER → 2024-10-26 14:43 | Outpatient (CLI) | payer OTHER, SELFPAY | PROVIDERS: Family Provider Physician Assistant; PCP Family Medicine; Visit Provider Urology | DX: R33.9 Retention of urine, unspecified (principal); Z97.8 Presence of other specified devices | CPT/HCPCS: 87077; 87086; 87147; 87186 ==

== ENCOUNTER 2024-11-09 14:37 | Emergency (ER) | payer OTHER, SELFPAY ==
[2024-11-09 14:42] VITALS: BP 119/76; PULSE 74; RESP 18; TEMP 36.4; O2SAT 99; BMI 24.4
[2024-11-09] MEDS: LIDOCAINE 2% (GLYDO) 6 ML GEL TOP (15:40)
--- NOTE | 2024-11-09 15:40 | PC.SBAR ---
SITUATION: [] indwelling cross with plans for aqua ablation procedure. At 0900 today pt states was last urine output. Unable to urinate with catheter since. Experiencing abd pain 7/10 pressure. BACKGROUND: []Hx BPH, taking tamsulosin, is supposed to be scheduled for aquaablation procedure which the date is not yet set. ASSESSMENT: [] Firm lower abdomen, tender. No urinary drainage from catheter. RECOMMENDATION: []Dr. Benton requests attempt to flush catheter with NS and then change catheter with new coude. RESPONSE: []Attempted to flush pt's catheter with no intake at catheter. I tried repositioning the catheter with no change. Catheter was removed with sediment/clot build up around catheter tubing. New 18g coude tip catheter inserted with glydo. Patent and draining cross with 500cc cloudy dark yellow urine output. Pt reports immediate relief.
[2024-11-09 16:08] LABS: Bacteria Urine Few (2-10); Culture Indicated Urine Specimen Cultured; Squamous Epithelial Cell Urine 0-1 /HPF (0-5/HPF); Urine Volume 10mL (spun); WBC Urine >100/HPF (0-5/HPF)
[2024-11-09 16:10] LABS: RBC Urine 10-30/HPF (0-5/HPF)
[2024-11-09 16:39] VITALS: BP 112/76; PULSE 76; O2SAT 95
[2024-11-09 16:40] VITALS: BP 112/76; PULSE 76; O2SAT 94
--- NOTE | 2024-11-09 16:56 | ED_ITS ---
HPI - General Adult General Chief complaint: Urogenital-Male Stated complaint: clogged catheter Time Seen by Provider: 11/09/24 14:49 Source: patient Mode of arrival: Ambulatory History of Present Illness HPI narrative: 78-year-old gentleman with BPH managed with Thomas catheter for the last number of months. Typically changes at monthly and is followed by Dr. Ho. Today he notes of the catheter has stopped draining he is having increasing suprapubic tenderness and comes in for further evaluation. He has having no fevers or chills. Related Data Home Medications Medication Instructions Recorded Confirmed finasteride 5 mg tablet 5 mg PO DAILY 11/15/23 10/26/24 tamsulosin 0.4 mg capsule (Flomax) 0.8 mg PO QDAY 08/10/24 10/26/24 Previous Rx's Medication Instructions Recorded cefdinir 300 mg capsule 300 mg PO BID #14 caps 09/18/24 trospium 20 mg tablet 20 mg PO DAILY #30 tabs 10/26/24 Allergies Allergy/AdvReac Type Severity Reaction Status Date / Time No Known Drug Allergies Allergy Verified 11/09/24 14:46 Patient History Medical History History of hydronephrosis Thomas catheter present Retention of urine POLST (Physician Orders for Life-Sustaining Treatment) Encounter for subsequent annual wellness visit (AWV) 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 Social History marital status: number of children: 1 Smoking Status: Former smoker alcohol intake: current caffeine: No Type(s) of exercise: bicycling frequency: 3-4 times per week duration: 60-90 minutes/day Smoking Status: Former smoker tobacco type: cigarettes alcohol intake frequency: a few times a week Exam Initial Vital Signs Initial Vital Signs: Vital Signs Temperature 97.6 F 11/09/24 14:42 Pulse Rate 74 11/09/24 14:42 Respiratory Rate 18 11/09/24 14:42 Blood Pressure 119/76 11/09/24 14:42 Pulse Oximetry 99 11/09/24 14:42 Oxygen Delivery Method Room Air 11/09/24 14:42 General: Alert appropriate in no acute distress Respiratory: Able to speak in full sentences, no obvious respiratory distress Skin: No obvious rashes, warm and dry Neurologic: Grossly intact no obvious asymmetries or abnormalities Psych: appropriate insight and affect, cooperative Bladder volume is almost 500 cc with Thomas catheter in place Course Orders Ordered: ED Orders 11/09/24 15:42 Urine Culture Stat Urine Microscopic Stat Discontinued Medications Lidocaine HCl (Lidocaine 2% (Glydo) 6 Ml Gel) 6 ml TOP NOW ONE Stop: 11/09/24 15:08 Last Admin: 11/09/24 15:40 Dose: 6 ml Documented By: SPF Vital Signs Vital signs: Vital Signs - 8 hr 11/09/24 14:42 11/09/24 16:40 Temperature 97.6 F Pulse Rate 74 76 Respiratory Rate 18 Blood Pressure 119/76 112/76 Pulse Oximetry 99 94 Oxygen Delivery Method Room Air Room Air Medical Decision Making Lab Data Labs: Lab Results 11/09/24 Range/Units 15:42 Urine RBC 10-30/hpf H (0-5/HPF) Urine WBC >100/hpf H (0-5/HPF) Ur Squamous Epith Cells 0-1 /hpf (0-5/HPF) Urine Bacteria Few (2-10) H (None) Ur Culture Indicated? Specimen cultured Micro UA Comment Vol Urine Centrifuged 10ml (spun) Urine Dip Bedside Urine Glucose Negative Bedside Urine Bilirubin - Negative Bedside Urine Ketone - Negative Urine Specific Tyler 1.015 Bedside Urine Occult Blood ++ Bedside Urine pH 6.0 Bedside Urine Protein - Negative Bedside Urine Urobilinogen - Negative Bedside Urine Nitrite + Positive Bedside Urine Leukocytes +++ 500 Esterase Point of care testing: Urine Dip Bedside Urine Glucose Negative Bedside Urine Bilirubin - Negative Bedside Urine Ketone - Negative Urine Specific Tyler 1.015 Bedside Urine Occult Blood ++ Bedside Urine pH 6.0 Bedside Urine Protein - Negative Bedside Urine Urobilinogen - Negative Bedside Urine Nitrite + Positive Bedside Urine Leukocytes +++ 500 Esterase MDM Narrative Medical decision making narrative: 78-year-old gentleman with chronic Thomas catheter use due to BPH, reportedly developed quite a bit of sediment and occasionally has catheters get clogged. He has not had any output from his current Thomas catheter and almost 500 cc in his bladder. Attempts were made to flush it in the emergency department and were ineffective. Was removed and replaced without difficulty. The nurse does note there was quite a bit of sediment and debris around the tip of the catheter. Over 500 cc drained, patient's abdominal discomfort is entirely resolved. He will be discharged home. Suggested he contact Dr. Ho is office to let them know that he had his catheter changed today and we will not need to follow up with his appointment next week for catheter change. He is safe for discharge Discharge Plan Departure Patient Disposition: Home Clinical Impression: Thomas catheter problem Qualifiers: Encounter type: initial encounter Qualified Code(s): T83.9XXA - Unspecified complication of genitourinary prosthetic device, implant and graft, initial encounter BPH (benign prostatic hyperplasia) Qualifiers: Lower urinary tract symptom presence: symptoms present Lower urinary tract symptom detail: urinary retention Qualified Code(s): N40.1 - Benign prostatic hyperplasia with lower urinary tract symptoms Instructions: How to Care for Your Thomas Catheter -- Male Activity Restrictions/Additional Instructions: Thank you for coming in today. Your Thomas catheter was blocked. We replaced it without difficulty. Please contact Dr. Ho's office to reschedule your monthly Thoams catheter replacement. If you find that you are getting worse or develop any new symptoms, please feel free to return to the emergency department for further evaluation. Prescriptions: No Action cefdinir 300 mg capsule 300 mg PO BID Qty: 14 0RF finasteride 5 mg tablet 5 mg PO DAILY trospium 20 mg tablet 20 mg PO DAILY Qty: 30 12RF Rx Instructions: administer on an empty stomach tamsulosin [Flomax] 0.4 mg capsule 0.8 mg PO QDAY Rx Instructions: Take 2 tablet by mouth daily for BPH symptoms Referrals: Luh Briggs DO [Primary Care Provider] - Stand Alone Forms: Patient Portal/API/Survey
[2024-11-09 17:00] VITALS: BP 135/70; PULSE 68; O2SAT 94
[2024-11-09 17:19] VITALS: BP 135/70; PULSE 76; RESP 18; TEMP 35.6; O2SAT 98
== END 2024-11-09 17:25 | disposition home or self-care (01) ==
PROVIDERS: Emergency Provider Emergency Medicine; Family Provider Physician Assistant; PCP Family Medicine
DX: T83.9XXA Unspecified complication of genitourinary prosthetic device, implant and graft, initial encounter (principal); N40.1 Benign prostatic hyperplasia with lower urinary tract symptoms
CPT/HCPCS: 51798; 81003; 81015; 87077; 87086; 87147; 87186; 99283

== ENCOUNTER 2024-11-25 10:02 | Emergency (ER) | payer OTHER, SELFPAY ==
[2024-11-25 10:04] VITALS: BP 136/80; PULSE 81; RESP 14; TEMP 36.5; O2SAT 96; BMI 11.2
[2024-11-25 10:09] VITALS: BP 136/80; PULSE 78; O2SAT 97
--- NOTE | 2024-11-25 10:44 | ED_ITS ---
HPI - Male Genitourinary General Chief complaint: Urogenital-Male Stated complaint: clogged catheter Time Seen by Provider: 11/25/24 10:35 Source: patient, RN notes reviewed and old records reviewed Mode of arrival: Ambulatory Limitations: no limitations History of Present Illness HPI Narrative: 78-year-old male history of BPH managed with Thomas catheter for several months typically changed monthly last change was about a month ago. Patient presents today as he was not having any output from the catheter itself nursing had attempted to flush without any success they deflated the balloon but could not easily patient notes his catheter stopped draining overnight he had maybe 100 mL in the bag nothing more. He feels uncomfortable and very full. No fevers or chills denies any other symptoms. States it is usually little bit painful to remove the catheter but has had issues with it on and off having to have it replaced. Related Data Home Medications Medication Instructions Recorded Confirmed finasteride 5 mg tablet 5 mg PO DAILY 11/15/23 10/26/24 tamsulosin 0.4 mg capsule (Flomax) 0.8 mg PO QDAY 08/10/24 10/26/24 dabigatran etexilate 150 mg 150 mg PO BID 11/24/24 11/24/24 capsule (Pradaxa) metoprolol succinate 25 mg 25 mg PO DAILY 11/24/24 11/24/24 tablet,extended release 24 hr Previous Rx's Medication Instructions Recorded cefdinir 300 mg capsule 300 mg PO BID #14 caps 09/18/24 trospium 20 mg tablet 20 mg PO DAILY #30 tabs 10/26/24 Allergies Allergy/AdvReac Type Severity Reaction Status Date / Time No Known Drug Allergies Allergy Verified 11/25/24 10:13 Review of Systems Review of Systems ROS Unobtainable: All systems reviewed & are unremarkable except as noted in HPI and below Patient History Medical History History of hydronephrosis Thomas catheter present Retention of urine POLST (Physician Orders for Life-Sustaining Treatment) Encounter for subsequent annual wellness visit (AWV) 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 Social History marital status: number of children: 1 Smoking Status: Former smoker alcohol intake: current caffeine: No Type(s) of exercise: bicycling frequency: 3-4 times per week duration: 60-90 minutes/day Smoking Status: Former smoker tobacco type: cigarettes alcohol intake frequency: a few times a week Exam Narrative Exam Narrative: GENERAL: Alert and oriented x three, male in moderate distress. HEENT: Head normocephalic, atraumatic, EOMI, pupils reactive, face symmetric, moist mucous membranes NECK: Supple, full range of motion CARDIOVASCULAR: Regular rate and rhythm without murmurs, rubs or gallops. RESPIRATORY: Breath sounds equal bilaterally, no wheezes rales or rhonchi. ABDOMEN: Soft, mildly tender but patient does feel distended at the suprapubic region.. Normoactive bowel sounds all 4 quadrants. No guarding or rebound, rigidity, no mass : No CVA tenderness, Male: normal external examination, no penile discharge or lesions, testicles non-tender, cremasteric reflex intact, no inguinal hernias noted. Patient has Thomas catheter in place nursing had attempt to flush without improvement, had deflated the balloon but it was not giving easily. Catheter was advanced, attempted to deflate the balloon again and then gentle persistent traction and catheter came out with some mild resistance. Noted there appears to be a rind or calcification and crusted on the catheter itself distal little balloon which likely caused the sensation of resistance. Patient has a small amount of pain. Scant amount of blood noted. EXTREMITIES: Normal range of motion, no clubbing or edema. Neurovascularly intact NEUROLOGICAL: Cranial nerves II through XII grossly intact. Moving all extremities SKIN: Warm, dry, no petechiae, no rashes or lesions. Initial Vital Signs Initial Vital Signs: Vital Signs Temperature 97.7 F 11/25/24 10:04 Pulse Rate 81 11/25/24 10:04 Respiratory Rate 14 11/25/24 10:04 Blood Pressure 136/80 11/25/24 10:04 Pulse Oximetry 96 11/25/24 10:04 Oxygen Delivery Method Room Air 11/25/24 10:04 Course Orders Ordered: Discontinued Medications Lidocaine HCl (Lidocaine 2% (Glydo) 6 Ml Gel) 6 ml TOP NOW ONE Stop: 11/25/24 10:45 Last Admin: 11/25/24 11:12 Dose: 6 ml Documented By: TERESA Vital Signs Vital signs: Vital Signs - 8 hr 11/25/24 10:04 Temperature 97.7 F Pulse Rate 81 Respiratory Rate 14 Blood Pressure 136/80 Pulse Oximetry 96 Oxygen Delivery Method Room Air MDM - Male Genitourinary MDM Narrative Medical decision making narrative: 78-year-old male history of chronic Thomas catheter due to BPH catheter occasionally gets clogged has not had any put overnight attempt to flush was ineffective attempt to remove has a little bit of difficulty was advanced balloon was deflated by myself and with gentle traction and with a small amount of resistance but slid out fairly easily. Appears to have some calcification distal to the balloon which is likely what caused his resistance. Catheter was replaced. Patient requested that we do not send a urinalysis as he was having 1 done on Wednesday follow up with Urology, he states he has otherwise been asymptomatic. Discharge Plan Departure Patient Disposition: Home Clinical Impression: Malfunction of Thomas catheter Activity Restrictions/Additional Instructions: Please follow up with Urology, your catheter today appear to have some calcification which he was likely would cause the blockage and inability to drain. Talk with your urologist about the best way to prevent this. Please return for fevers, new abdominal back or flank pain, difficulty with your catheter, if it is not draining, new vomiting or other new or concerning changes. Prescriptions: No Action cefdinir 300 mg capsule 300 mg PO BID Qty: 14 0RF finasteride 5 mg tablet 5 mg PO DAILY metoprolol succinate 25 mg tablet extended release 24 hr 25 mg PO DAILY dabigatran etexilate [Pradaxa] 150 mg Capsule 150 mg PO BID trospium 20 mg tablet 20 mg PO DAILY Qty: 30 12RF Rx Instructions: administer on an empty stomach tamsulosin [Flomax] 0.4 mg capsule 0.8 mg PO QDAY Rx Instructions: Take 2 tablet by mouth daily for BPH symptoms Referrals: Jonathan Ho MD [Physician] - Luh Briggs DO [Primary Care Provider] - Stand Alone Forms: Patient Portal/API/Survey
[2024-11-25] MEDS: LIDOCAINE 2% (GLYDO) 6 ML GEL TOP (11:12)
--- NOTE | 2024-11-25 11:17 | PC.NURSE ---
Dr. Goetz removed catheter.. I attempted to flush his 18 f coude catheter that he arrived with. that was unsuccessful. I removed all of the water in the balloon and was unable to remove the cath. Dr. Goetz removed the catheter. large amount of calcified deposits and some blood at the tip. New cath placed without incident
[2024-11-25 11:54] VITALS: BP 111/55; PULSE 65; RESP 16; O2SAT 95
== END 2024-11-25 12:00 | disposition home or self-care (01) ==
PROVIDERS: Emergency Provider Emergency Medicine; Family Provider Physician Assistant; PCP Family Medicine
DX: T83.011A Breakdown (mechanical) of indwelling urethral catheter, initial encounter (principal); Y73.1 Therapeutic (nonsurgical) and rehabilitative gastroenterology and urology devices associated with adverse incidents
CPT/HCPCS: 51702; 51798; 99283; 99284

== ENCOUNTER → 2024-11-28 13:48 | Outpatient (CLI) | payer OTHER, SELFPAY | PROVIDERS: Family Provider Physician Assistant; PCP Family Medicine; Visit Provider Urology | DX: N40.1 Benign prostatic hyperplasia with lower urinary tract symptoms (principal); N13.8 Other obstructive and reflux uropathy; R33.9 Retention of urine, unspecified; R39.9 Unspecified symptoms and signs involving the genitourinary system; I48.0 Paroxysmal atrial fibrillation; Z87.448 Personal history of other diseases of urinary system; Z97.8 Presence of other specified devices; Z82.49 Family history of ischemic heart disease and other diseases of the circulatory system | CPT/HCPCS: 87077; 87086; 87147; 87186; 99214 ==

== ENCOUNTER 2024-12-05 07:49 | Day surgery (SDC) | payer OTHER, SELFPAY ==
[2024-11-24 09:53] VITALS: BMI 24.4
[2024-12-05] VITALS (9 sets, daily range): BP systolic 91–116; BP diastolic 56–71; PULSE 65–88; RESP 12–16; TEMP 36.1–36.2; O2SAT 92–100; BMI 24.4
--- NOTE | 2024-12-05 | PATH_ITS ---
[facility] Accession Number: [id number] No. of containers..01 Tissue . 01 Material submitted: . prostate - PROSTATE CHIPS . 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 [facility] 12/07/2024 1151 Local . 01 Electronically signed: . Shelly Ramesh MD, Pathologist NPI- [id number] . 01 Gross description: . Received in formalin with two identifiers and prostate chips, are multiple fragments of vuong soft tissue admixed with hemorrhagic material and white-yellow calculi weighing 4 grams and aggregating to 4.6 x 3.5 x 1.5 cm. A majority of the vuong soft tissue fragments are submitted in A1-A4. ([id number]) /MRV 12/06/2024 2056 Local . 01 Microscopic: . An immunohistochemical stain for HMWCK+p63 is performed to evaluate for block reactivity. The control stained with appropriate reactivity. . RESULTS: Block A4 HMWCK+p63: Present in region of interest. . The presence of HMWCK+p63 at the focus of interest mitigates against an interpretation of prostatic adenocarcinoma in this tissue. . * This test was developed and the performance characteristics were validated by [employer]. It has not been cleared or approved by the U.S. Food and Drug Administration. . 01 Pathologist provided ICD-10: N40.1, R33.9 . 01 CPT . 182872, J22251 Specimen Comment: A courtesy copy of this report has been sent to [phone] Performed at: [address] [facility], [place], [place] [id number] MD Marcelino Higgins MD Phone: [phone]
[2024-12-05] MEDS: LACTATED RINGERS 1,000 ML 21 ML IV ×2 (08:39→11:28)
[2024-12-05] MEDS: ACETAMINOPHEN 325 MG TABLET 975 MG PO (08:43)
--- NOTE | 2024-12-05 08:49 | PM.PREOP ---
Pre-operative Note COVID-19 COVID-19 status: Not tested Interval Note History & Physical reviewed/Exam performed by Physician: Yes Changes to H&P: No
[2024-12-05] MEDS: AMOXICILLIN 250 MG CAPSULE 2000 MG PO (09:10)
[2024-12-05] MEDS: CIPROFLOXACIN 400 MG/200 ML PIGGYBACK 200 MG IV (09:40)
--- NOTE | 2024-12-05 09:49 | SUR.OPER ---
Lithotomy on padded OR bed, head on pillow, arms secured on padded arm boards at <90 degrees abduction. Legs secured in padded yellow fins stirrups.
--- NOTE | 2024-12-05 12:06 | PM.OP.1 ---
Operative Date/Time/Diagnoses Date of procedure: 12/05/24 Time of procedure: 12:06 Pre-op diagnosis: BPH with LUTS/urinary retention Post-op diagnosis: same Procedure & Clinicians Procedure: 1. Aquablation 2. Transrectal ultrasound of prostate 3. Cystolitholapaxy with the evacuation of stone fragments 4. Transurethral resection of prostate with fulguration 5. Placement of Thomas catheter Same procedure as scheduled: No (The cystolitholapaxy was added due to the presence of calcifications.) Indications: This 78-year-old male had profound BPH with LUTS and urinary retention. He was worked up and found to be a excellent candidate for Aquablation and presents this time to eliminate his urinary retention and lower urinary tract symptoms. Patient had an 80 g prostate by ultrasound, obstructive character with bulging into the bladder severe trabeculation cellules and webbing within the bladder. Due to his urinary retention could not perform uroflow and again failing medical management we will proceed with Aquablation. Surgeon: Jonathan Ho Click Yes if Unassisted: Yes Anesthesia Type: General Operative Notes Findings: Urethral meatus is normal urethra is normal along its length with normal mucosa, the sphincter as well coapted. The prostate exhibits marked obstructive character with bulging into the bladder and a perhaps small median lobe. Ureteral orifices in normal position with clear efflux. The back bladder exhibited severe trabeculation, cellules, webbing, calcifications which appeared to be likely from the Thomas balloon and were too large to pass without attention or treatment, no other mucosal lesions were noted. At the end of the procedure the prostatic fossa was widely patent both under direct vision and by ultrasound there appeared to be an excellent channel. In the bladder appeared to be evacuated of all stone debris and chips. A 24 Lithuanian three-way 30 cc hematuria catheter was left in place with 40 cc in the balloon. It was placed to gravity drainage and CBI and the urine was at most light pink. Closure Type: not applicable Specimen(s): other (1. Prostate chips 2. Bladder calcifications) Prosthetic devices, grafts, tissues, transplants, or devices: 24 Lithuanian three-way 30 cc hematuria catheter 45 cc in the balloon. Estimated Blood Loss (mL): 50 Blood products transfused: none Procedure in detail: Procedure in detail: After informed consent was obtained, the patient was identified brought to the operating room where he was placed in the supine position on the table. Once there anesthesia was induced and maintained and IV antibiotics administered. Ensuring an adequate level of anesthesia the patient was transitioned to the lithotomy position where he was prepped. Showing an adequate level of anesthesia, after prepping, administration of IV antibiotics and time-out 60 cc of ultrasound gel was instilled within the rectum and the ultrasound probe was inserted. The ultrasound probe had been connected to the truss stepper which was mounted to the articulating arm which was secured to the OR bed. The ultrasound probe was then aligned and confirmation made that the prostate was centered and aligned using both the transverse and sagittal views. The bladder neck verumontanum central and transition zones were identified. The prostate it previously been measured in the 80 g range. With the ultrasound probe in appropriate position and excellent image the patient was then draped in his sterile fashion. With the patient draped the 24 Lithuanian Aquablation handpiece was inserted into the urethra prostate bladder under direct vision where cystoscopy was performed. As the Aquablation handpiece was inserted both under direct vision and by ultrasound the external sphincter, verumontanum and bladder neck were all noted. With the tip of the scope just into the bladder the Aquablation handpiece was secured to the hand piece articulating arm and magnetic locked instituted and the stability of the hand piece ensured. Note the articulating arm he had been secured to the bed. At this point it was confirmed that the aqua beam handpiece and trust pole were parallel and colinear. The Aquablation beam nozzle was confirmed to be centered and anterior to the bladder neck. The cystoscope was then retracted to visualize the verumontanum and external sphincter and the tip of the scope was left just proximal to the external sphincter. The alignment of the truss probe and Aquablation handpiece was once again performed to make sure that they were aligned and colinear. The horizontal alignment of the handpiece water jet nozzle was performed. With this completed the Aquablation seem treatment plan in zones were performed using real-time ultrasound to visualize the contour and anatomic landmarks of the prostate. The depth and radial angles of resection were defined in the transverse view in the sagittal view the Aquablation nozzle was identified and position registered with the software. The treatment length was then identified and the treatment contours in the sagittal view were then placed and adjusted. With these in excellent position and ensuring that the patient was paralyzed the treatment was started and followed the contour was a resection under ultrasound guidance. The prostate would need a 2nd pass and so the treatment contour lines were adjusted and a 2nd pass performed giving a total resection time of about 9 minutes. Once this was completed the scope was advanced to the tip of the hand piece the irrigation turned on in the scope backed out under direct visualization. At this point the resectoscope was inserted with the direct vision obturator and the bladder and prostatic fossa irrigated with the Ellik evacuator evacuating clots. The resecting element was then inserted the ureteral orifices position identified and the bladder neck was resected from the 2 to 10 o'clock position sequentially. Attention was then turned to the anterior prostate where there was some bleeding and redundant tissue which were resected points of bleeding controlled with the electrocautery. The veru was visualized there was a small amount of apical tissue posteriorly on the right and left which were resected and again points of bleeding controlled with the electrocautery. The Ellik evacuator was then used to evacuate the chips. And again the prostatic fossa was inspected and further points of bleeding were controlled. With this adequate the resectoscope was removed patient had a vigorous stream and a 22 Lithuanian cystoscope was passed through the urethral prostate and into the bladder under direct vision. Mechanical lithotrite was then inserted in the flakes or calcifications within the bladder were then treated. They were then evacuated. And was determined that this would be more efficient with the resectoscope and so the cystoscope was backed out the resectoscope was once again inserted and the stone fragments removed in their entirety. Again further points of bleeding were noted at the bladder neck these were cauterized and the scope was removed. The removal of the stones was a tedious process taking 30 minutes the truss in 2 beginning treatment of the stones was 46 minutes. With all the fragments removed and hemostasis good the ultrasound probe was removed and the scope was removed with the patient once again had a vigorous stream and the 24 Lithuanian catheter was passed end of the bladder with the aid of a catheter guide the balloon filled with 45 cc of sterile water placed to gravity drainage and CBI. The catheter was then hand irrigated and placed to gravity drainage the patient was awakened having tolerated the procedure well to be transferred to the postanesthesia care unit for recovery there were no complications. Complications: none Post-operative Condition: stable Disposition: PACU Plan for aftercare: Patient to be followed in the postanesthesia care unit with CBI and if effluent color remains acceptable he will be discharged to home if not he will be brought in for 23 hour stay.
== END 2024-12-05 13:14 | disposition home or self-care (01) ==
PROVIDERS: Family Provider Physician Assistant; PCP Family Medicine; Referring Provider Urology; Visit Provider Urology
PROC: 0VT08ZZ Resection of Prostate, Via Natural or Artificial Opening Endoscopic (ICD-10-PCS; CPT 52597; principal; 2024-12-05 09:15)
DX: N40.1 Benign prostatic hyperplasia with lower urinary tract symptoms (principal); R33.9 Retention of urine, unspecified
CPT/HCPCS: 0421T; C2596; J0330; J0744; J1100; J1885; J2405; J2704; J3010; J3490

== ENCOUNTER → 2024-12-07 14:28 | Outpatient (CLI) | payer OTHER, SELFPAY | PROVIDERS: Family Provider Physician Assistant; PCP Family Medicine; Visit Provider Urology | DX: N40.1 Benign prostatic hyperplasia with lower urinary tract symptoms (principal); N13.8 Other obstructive and reflux uropathy; Z68.24 Body mass index [BMI] 24.0-24.9, adult | CPT/HCPCS: 51798; 81002; 87086 ==

== ENCOUNTER → 2024-12-08 08:47 | Outpatient (CLI) | payer OTHER, SELFPAY ==
[2024-12-08 09:02] LABS: Appearance Urine UA CLOUDY; Bilirubin Urine UA NEGATIVE (NEGATIVE); Color Urine UA ORANGE; Glucose Urine UA NEGATIVE (Negative); Ketones Urine UA NEGATIVE (NEGATIVE); Leukocyte Esterase Urine UA 1+ (NEGATIVE); Nitrite Urine UA NEGATIVE (Negative); Occult Blood Urine UA 3+ (Negative); Protein Urine UA 2+ (Negative); Specific Gravity Urine UA 1.015 (1.000-1.035); Urobilinogen Urine UA 0.2 E.U./dL (0.2); pH Urine UA 5.5 (4.5-8.0)
[2024-12-08 09:03] LABS: Urine Volume 10mL (spun)
[2024-12-08 09:04] LABS: Bacteria Urine Moderate (10-30); Culture Indicated Urine Specimen Cultured; RBC Urine >100/HPF (0-5/HPF); Squamous Epithelial Cell Urine None Seen (0-5/HPF); WBC Urine 5-10/HPF (0-5/HPF)
== END ==
PROVIDERS: Family Provider Physician Assistant; PCP Family Medicine; Visit Provider Urology
DX: N40.1 Benign prostatic hyperplasia with lower urinary tract symptoms (principal); N13.8 Other obstructive and reflux uropathy
CPT/HCPCS: 81001; 87086

== ENCOUNTER → 2024-12-20 16:13 | Outpatient (CLI) | payer OTHER, SELFPAY | PROVIDERS: Family Provider Physician Assistant; PCP Family Medicine; Visit Provider Urology | DX: R39.9 Unspecified symptoms and signs involving the genitourinary system (principal) | CPT/HCPCS: 87086 ==

== ENCOUNTER → 2025-01-10 08:55 | Outpatient (CLI) | payer OTHER, SELFPAY | PROVIDERS: Family Provider Physician Assistant; PCP Family Medicine; Visit Provider Urology | DX: N40.1 Benign prostatic hyperplasia with lower urinary tract symptoms (principal); N13.8 Other obstructive and reflux uropathy; R33.9 Retention of urine, unspecified; Z87.448 Personal history of other diseases of urinary system; Z68.24 Body mass index [BMI] 24.0-24.9, adult | CPT/HCPCS: 51798; 81002; 87086 ==

== ENCOUNTER → 2025-02-21 15:56 | Outpatient (CLI) | payer OTHER, SELFPAY | PROVIDERS: Family Provider Physician Assistant; PCP Family Medicine; Visit Provider Urology | DX: N40.1 Benign prostatic hyperplasia with lower urinary tract symptoms (principal); N13.8 Other obstructive and reflux uropathy; R39.9 Unspecified symptoms and signs involving the genitourinary system | CPT/HCPCS: 51798; 81002; 87077; 87086; 87186; 99213 ==

== ENCOUNTER → 2025-07-24 09:20 | Outpatient (CLI) | payer OTHER, SELFPAY ==
[2025-07-24 09:39] LABS: Hematocrit 47.3 % (41-53); Hemoglobin 16.4 g/dL (13.5-17.5); Mean Corpuscular HGB Conc 34.7 % (30-36); Mean Corpuscular Hemoglobin 31.0 PG (26-34); Mean Corpuscular Volume 89.3 fL (80-100); Platelet Count 202 X10^3/uL (150-400)
[2025-07-24 10:21] LABS: Alanine Aminotransferase 31 IU/L (<50); Albumin 4.2 g/dL (3.5-5.0); Albumin Globulin Ratio 1.4 (1.0-2.8); Alkaline Phosphatase 60 U/L (38-126); Blood Urea Nitrogen 15 mg/dL (9-20); Calcium 9.1 mg/dL (8.4-10.2); Carbon Dioxide 27 mmol/L (22-32); Chloride 107 mmol/L (98-107); Cholesterol 184 mg/dL (140-199); Estimated Glomerular Filt Rate > 60 mL/min (>60); Globulin 3.0 g/dL (1.7-4.1); Glucose 58 mg/dL (70-99); HDL Cholesterol 40 mg/dL (40-60); HEMOLYSIS < 15 (0-50); Hemoglobin A1C% w Est Avg Glu 5.3 % (4.0-6.0); Potassium 3.9 mmol/L (3.4-5.1); Sodium 141 mmol/L (137-145); Total Protein 7.2 g/dL (6.3-8.2); Triglycerides 96 mg/dL (35-150); VLDL Cholesterol Calculated 19 mg/dL (2-30)
[2025-07-24 16:18] LABS: Hep C Virus Ab w/Reflex Quant NEGATIVE s/c (NEGATIVE)
== END ==
PROVIDERS: Internal Medicine Cardiovascular Disease; Family Provider Physician Assistant; PCP Family Medicine; Referring Provider Physician Assistant; Visit Provider Physician Assistant
DX: Z00.00 Encounter for general adult medical examination without abnormal findings (principal); R73.01 Impaired fasting glucose; E78.2 Mixed hyperlipidemia; I48.0 Paroxysmal atrial fibrillation
CPT/HCPCS: 36415; 80053; 80061; 83036; 85027; 86803

== ENCOUNTER → 2025-08-08 09:10 | Outpatient (CLI) | payer OTHER, SELFPAY | PROVIDERS: Family Provider Physician Assistant; PCP Family Medicine; Visit Provider Urology | DX: N40.1 Benign prostatic hyperplasia with lower urinary tract symptoms (principal); N13.8 Other obstructive and reflux uropathy | CPT/HCPCS: 87077; 87086; 87147 ==